=== PATIENT | female | born 1980 | race Caucasian/White ===

== ENCOUNTER 2018-07-10 07:58 | Outpatient (CLI) | payer BC, SELFPAY ==
--- NOTE | 2018-07-10 12:16 | DI.MAMMO_ITS ---
SYMPTOM/DIAGNOSIS: SCREENING, Z12.31, FAM HX BREAST CA, Z80.3, Z87.898, PERSONAL HX OF OTHER SPECIFIED CONDITIONS, HX LUMP LT BREAST MAMMOGRAMS: Mammograms were interpreted according to the usual protocol including computer analysis with CAD system, tomosynthesis and C view imaging. Comparison examinations. Breast density D. No suspicious masses or microcalcifications are seen. There is no definite evidence of malignancy. IMPRESSION: Negative mammogram. Routine screening is recommended. Category I. MQSA ASSESSMENT OF FINDINGS: Negative. Category 1. Patient will receive a letter notifying them of these results. BI-RADS category D. The breasts are extremely dense, which lowers the sensitivity of mammography.
== END 2018-07-10 08:18 ==
PROVIDERS: PCP Nurse Practitioner; Visit Provider Nurse Practitioner
DX: Z12.31 Encounter for screening mammogram for malignant neoplasm of breast (principal); Z80.3 Family history of malignant neoplasm of breast; Z87.898 Personal history of other specified conditions
CPT/HCPCS: 77063; 77067

== ENCOUNTER 2018-07-13 16:07 | Outpatient (REF) | payer BC, SELFPAY ==
--- NOTE | 2018-07-13 14:00 | PAPFT_PTH ---
PATIENT: Naty Raymond LOC: [facility] U#:[id number] AGE/SX: 38/F ROOM: RE07/13/[address]: AUTUMN Luis : 1980 BED: DIS: 07/13/2018 SPEC #: [id number] RECD: 07/13/18 17:39 STATUS: VENICE RESue #: [id number] REENA: 07/13/18 14:[address]: Cynthia Zavala DEPT: [facility] Cytology RECD BY: Sara Freire ENTERED: 07/13/18 17:39 SP TYPE: PAPFT CLAUDIA DR: Merlyn Pena APRN Tissues: 1 - CX/ENDOCX FOR PAP SMEARS Procedures: PAP THIN PREP/UVM Screening HPV DNA PROBE Comments: [id number]
== END 2018-07-13 16:27 ==
LOC: LBN 16:07
PROVIDERS: PCP Nurse Practitioner; Visit Provider Nurse Practitioner Family
DX: Z12.4 Encounter for screening for malignant neoplasm of cervix (principal); Z11.51 Encounter for screening for human papillomavirus (HPV)
CPT/HCPCS: 88142; 87624

== ENCOUNTER 2018-09-18 11:29 | Outpatient (CLI) | payer BC, SELFPAY ==
[2018-09-18 11:51] LABS: HCT 39.4 % (36.0-46.0); HGB 13.9 g/dL (12.0-15.5); Mean Corp. HGB Concentration 35.3 g/dL (32.0-36.0); Mean Corpuscular Hemoglobin 31.2 pg (27.0-33.0); Mean Corpuscular Volume 88.5 fL (80-95); Mean Platelet Volume 10.1 fL (8.0-11.0); Platelet Count 205 x1000/uL (130-400); RBC 4.45 m/cumm (4.00-5.20); RBC Distribution Width 13.4 % (11.7-14.6); White Blood Cell Count 4.72 k/cumm (4.4-10.8)
[2018-09-18 12:27] LABS: ESR 8 MM/HR (0-20)
[2018-09-18 12:51] LABS: ALT 15 U/L (12-78); AST 12 U/L (15-37); Albumin 4.2 g/dL (3.4-5.0); Alkaline Phosphatase 50 U/L (46-116); Anion Gap 11.3 mmol/L (3-11); BUN 10 mg/dL (7-18); Bilirubin, Total 0.3 mg/dL (0.2-1.0); CO2 24.7 mmol/L (21.0-32.0); CREATININE 0.92 mg/dL (0.55-1.02); Calcium 9.1 mg/dL (8.5-10.1); Chloride 104 mmol/L (98-107); Glucose 90 mg/dL (70-100); Potassium 3.7 mmol/L (3.5-5.1); Sodium 140 mmol/L (136-145); Total Protein 7.2 g/dL (6.4-8.2)
[2018-09-20 13:12] LABS: IgA 188 mg/dL (85-499); Interpretation SEE COMMENTS; Tissue Transglutaminase IgA <1.2 U/mL (<4.0)
== END 2018-09-18 11:49 ==
PROVIDERS: PCP Nurse Practitioner; Visit Provider Nurse Practitioner
DX: R10.9 Unspecified abdominal pain (principal); R19.7 Diarrhea, unspecified; R53.81 Other malaise; K90.41 Non-celiac gluten sensitivity
CPT/HCPCS: 36415; 80053; 82784; 83516; 85027; 85652

== ENCOUNTER 2018-10-07 17:38 | Emergency (ER) | payer BC, SELFPAY ==
[2018-10-07 17:46] VITALS: BP 110/76; PULSE 65; RESP 16; TEMP 37.7; O2SAT 100
[2018-10-07 18:11] LABS: Bilirubin Negative (Negative); Blood Negative (Negative); Clarity Clear; Glucose Negative (Negative); Ketones Negative (Negative); Leukocyte Esterase Small (Negative); Nitrite Negative (Negative); Specific Gravity 1.025 (1.005-1.025); Urobilinogen 0.2 EU/dL (Up TO 0.2)
[2018-10-07 18:20] LABS: Bacteria Few HPF (Negative); C & S Indicated? No/Sq. Contamination; Casts Negative LPF (Negative); Crystals Negative HPF (Negative); Epithelial Cells Many HPF (Negative); Mucus Negative (Negative); RBC Negative (0-2)
--- NOTE | 2018-10-07 18:23 | DI.CT_ITS ---
SYMPTOMS/DIAGNOSIS: LEFT LOWER QUADRANT ABDOMINAL PAIN CT OF THE ABDOMEN AND PELVIS: Images were performed from the lung bases through the ischial tuberosities after IV and without oral contrast. There is some fluid in the lower pelvis. The requisition indicates previous hysterectomy. There is an apparent lower uterine segment remnant. The bladder is unremarkable. There are tiny bilateral ovarians cysts. There is a moderate quantity of stool. No bowel dilatation or inflammatory changes are seen. The lung bases are clear. The liver, gallbladder, spleen, pancreas, adrenals and kidneys are unremarkable. No bony abnormalities are seen. IMPRESSION: A small amount of free fluid in the lower pelvis could represent a ruptured ovarian cyst or could be physiologic. The appendix is not identified.
--- NOTE | 2018-10-07 18:25 | W.ED.GENAD ---
Discharge Plan Disposition Patient Disposition: HOME Condition: Stable Discharge Details Chief Complaint: Abd Prob Clinical Impression: Ovarian cyst Primary Care Provider: Merlyn Pena ED Provider: Morro Saha Home Meds and New Rx's Prescriptions: Continued amitriptyline 10 mg tablet 10 mg PO HS Qty: 90 RF: 3 Aimovig Autoinjector (2 Pack) 70 mg/mL auto-injector 140 mg SC QMONTH RF: 0 topiramate 50 mg tablet 50 mg PO DAILY RF: 0 prochlorperazine [Compazine] 25 MG suppository 25 mg RC Q12H PRN PRNRF: 0 hydroxyzine HCl 25 MG tablet 25 mg PO BID PRNRF: 0 ondansetron 4 MG tablet,disintegrating 4 mg PO Q8H PRN RF: 0 naproxen sodium 550 MG tablet 550 mg PO Q12H Qty: 0 RF: 0 Discharge Instructions Instructions: Ovarian Cyst (ED) Additional Instructions: It is recommended that you continue to take ibuprofen or [id number] pain medication as needed for discomfort. Return immediately to the emergency department for any new or significant worsening of symptoms or for any further concerns. Otherwise call [facility] for arrangement of follow-up appointment for ovarian cyst Referrals: [facility] [Provider Group] (Call the office for arrangement of follow-up appointment preferably in the next 1 to 2 weeks) Discharge Data Discharge Date/Time-TO BE ENTERED AT DEPARTURE: 10/07/18 20:47 Medical Decision Making Patient presenting the emergency department for chief complaint of abdominal pain. Patient does state that she saw her primary care provider approximately month ago for similar episode that lasted proximally 5 days and started to resolve. Patient reports that her abdominal pain feels similar and is on the left side of her abdomen. She does state some nausea and mild discomfort and left-sided abdominal pain along with reduced appetite patient does state bowel movement this morning. Patient denies any fever chills, vomiting, recent travel or other family members or close princes with similar symptoms. Physical exam shows left sided abdominal tenderness, normal active bowel sounds, no flank pain, otherwise unremarkable exam. Plan to check labs, CT imaging, and give IV fluids. Patient was offered pain medication but she deferred any need of pain medication at this time. Review of labs is nondiagnostic and CT imaging shows nonspecific pelvic fluid suggestive of ruptured ovarian cyst. Patient does state history of ovarian cyst in the past. Given otherwise nonspecific findings of work-up I feel the patient is able to be safely discharged to follow-up with [facility] for reevaluation of therapies for ovarian cyst. Return precautions were discussed. Patient was encouraged to use ibuprofen or NSAID therapy for discomfort. After discussion of diagnosis and plan of care patient has no further needs, questions, or concerns and states clear understanding to return to the emergency department for any worsening symptoms. HPI General Mode of arrival: ambulatory. Date/Time Provider Initiated Documentation: 10/07/18 17:39. Limitations to Documentation: no limitations. Information obtained by: patient and RN notes reviewed. History of Present Illness 38 year old F presents to the emergency department with the chief complaint of Abdominal pain, described as moderate, with intensity rated at 3. Quality is described as aching, Patient started experiencing this hour(s) (14) and it has been constant. No relieving factors improve symptom(s), Patient did receive the following treatments prior to arrival, none Related Data Home Medications Medication Instructions Recorded Confirmed naproxen sodium 550 mg PO Q12H #0 02/26/16 10/07/18 hydroxyzine HCl 25 mg PO BID PRN 08/02/16 10/07/18 ondansetron 4 mg PO Q8H PRN tab-cap 08/02/16 10/07/18 prochlorperazine [Compazine] 25 mg RC Q12H PRN PRN supp.rect 08/02/16 10/07/18 amitriptyline 10 mg tablet 10 mg PO HS #90 tab 07/03/18 09/18/18 erenumab-aooe 70 mg/mL 140 mg SC QMONTH 08/16/18 10/07/18 subcutaneous auto-injector topiramate 50 mg tablet 50 mg PO DAILY tab 09/18/18 10/07/18 Previous Rx's Medication Instructions Recorded naproxen sodium 550 mg PO Q12H #0 02/26/16 amitriptyline 10 mg tablet 10 mg PO HS #90 tab 07/03/18 Allergies Allergy/AdvReac Type Severity Reaction Status Date / Time ketorolac [From Toradol] AdvReac Severe Agitation Verified 10/07/18 17:51 doxycycline AdvReac Intermediate Nausea Verified 10/07/18 17:51 General Stated Complaint: Abd Prob TORY: 3 Review of Systems Constitutional Reports chills, Denies fever(s) and Reports poor appetite Cardiovascular Denies chest pain and Denies dyspnea Respiratory Denies cough and Denies dyspnea Gastrointestinal Reports as per HPI, Reports abdominal pain, Denies melena, Denies change in bowel habits, Denies constipation, Denies diarrhea, Denies nausea and Denies vomiting Genitourinary Denies hematuria, Denies urinary incontinence, Denies urinary hesitancy and Denies urinary urgency Integumentary/Breasts Denies rash PFSH Medical History Fibrocystic breast changes (Acute) Migraine (Acute 11/04/11) Surgical History S/P laparoscopic supracervical hysterectomy (Chronic) Hysterectomy, Laproscopic (02/26/16) SALPINGECTOMY B/L (02/26/16) Family History Mother Diabetes Essential hypertension Depression Hyperlipidemia Thyroid disease Father Alcohol abuse Essential hypertension Hyperlipidemia Sister Essential hypertension Hyperlipidemia Grandfather Myocardial infarction Grandfather Personal history of malignant neoplasm Grandmother Personal history of malignant neoplasm Grandmother Diabetes Social History Smoking/Tobacco Use Status: Former Tobacco Use Tobacco: How many years used: 3 Alcohol Intake: never Drug use: Never Substance use type: does not use Household members: family Housing: house Number of Children: 2 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 Pets and animals: Yes (cats,dogs and geese) Pets and animals: cat(s), dog(s) and farm animals Sexually active: Yes ( control: vastectomy and hysterectomy) What is your relationship status?: Panel score (0-1 are the most socially isolated patients): 1 What type of physical activity do you participate in: regular exercise Seatbelt use: always Helmet use: Yes Drive intox or ride w/intox boom truck driver: No Do you feel safe at home: Yes Do you feel safe in your relationship?: Yes Female Reproductive History Menstrual Menopause type: surgical History History 2 Para 2 Hx # Term Pregnancies Multiple births Hx # Pregnancies Ectopic pregnancies AB induced Hx Number of Living Children AB spontaneous Exam Const General: cooperative Orientation: alert, awake and oriented x3 Resp Effort & Inspection: normal respiratory effort and able to speak in complete sentences Auscultation: clear to auscultation bilaterally Cardio Rate: regular rate Rhythm: regular rhythm Heart Sounds: S1 normal and S2 normal GI Palpation: soft, no hepatosplenomegaly, not firm, no guarding, no masses, no pulsatile masses, not rigid, no splenomegaly and tender in the LUQ; not at McBurney's point, Castaneda's sign negative and Rovsing's sign negative Auscultation: hypoactive bowel sounds Back/Spine/Pelvis Back: no CVA tenderness Neuro General: alert, awake, oriented x3, gait normal and moves all extremities Course Vital Signs Temperature 37.7 C H 10/07/18 17:46 Pulse 65 10/07/18 17:46 Respiratory Rate 16 10/07/18 17:46 Blood Pressure 110/76 10/07/18 17:46 Pulse Oximetry 100 10/07/18 17:46 Temperature 37.7 C H 10/07/18 17:46 Pulse 65 10/07/18 17:46 Respiratory Rate 16 10/07/18 17:46 Respiratory Effort Non-Labored 10/07/18 18:21 Blood Pressure 110/76 10/07/18 17:46 Blood Pressure Position Sitting 10/07/18 17:46 Pulse Oximetry 100 10/07/18 17:46 Oxygen Delivery Method Room Air 10/07/18 17:46 Oxygen Flow Rate 0 10/07/18 17:46 Pain Level 3 10/07/18 17:46 Lab/Test Results Lab/Test Results: Laboratory Tests Range/Units 10/07/18 10/07/18 10/07/18 18:00 18:50 18:50 WBC (4.4-10.8) k/cumm 5.50 RBC (4.00-5.20) m/cumm 4.40 Hgb (12.0-15.5) g/dL 13.7 Hct (36.0-46.0) % 39.3 MCV (80-95) fL 89.3 MCH (27.0-33.0) pg 31.1 MCHC (32.0-36.0) g/dL 34.9 RDW (11.7-14.6) % 13.3 Plt Count (130-400) x1000/uL 225 MPV (8.0-11.0) fL 10.1 Immature Gran % 0.2 Neutrophils % 58.5 Lymphocytes % 33.1 Monocytes % 6.7 Eosinophils % 1.3 Basophils % 0.2 Absolute Neutrophils (1.2-6.7) k/cumm 3.22 Absolute Lymphocytes (1.2-3.4) k/cumm 1.82 Absolute Monocytes (0.11-0.7) k/cumm 0.37 Absolute Eosinophils (0.0-0.7) k/cumm 0.07 Absolute Basophils (0.0-0.2) k/cumm 0.01 Sodium (136-145) mmol/L 140 Potassium (3.5-5.1) mmol/L 3.3 L Chloride (98-107) mmol/L 104 Carbon Dioxide (21.0-32.0) mmol/L 24.1 Anion Gap (3-11) mmol/L 11.9 H BUN (7-18) mg/dL 10 Creatinine (0.55-1.02) mg/dL 0.92 Estimated GFR/1.73 m2 (mL/min/1.73m2) >= 60.00 Glucose (70-100) mg/dL 81 Calcium (8.5-10.1) mg/dL 8.6 Total Bilirubin (0.2-1.0) mg/dL 0.4 AST (15-37) U/L 13 L ALT (12-78) U/L 13 Alkaline Phosphatase (46-116) U/L 54 Total Protein (6.4-8.2) g/dL 7.3 Albumin (3.4-5.0) g/dL 4.2 Lipase (73-393) U/L 152 Urine Color (Yellow) Yellow Urine Clarity Clear Urine pH (5-8) 6.0 Ur Specific [place] (1.005-1.025) 1.025 Urine Protein (Negative) mg/dL Negative Urine Ketones (Negative) mg/dL Negative Urine Blood (Negative) Negative Urine Nitrite (Negative) Negative Urine Bilirubin (Negative) Negative Urine Urobilinogen (Up TO 0.2) EU/dL 0.2 Ur Leukocyte Esterase (Negative) Small H Urine RBC (0-2) Negative Urine WBC (0-5) HPF 3-5 Ur Epithelial Cells (Negative) HPF Many Urine Crystals (Negative) HPF Negative Urine Bacteria (Negative) HPF Few Urine Casts (Negative) LPF Negative Urine Mucus (Negative) Negative Ur Culture Indicated? No/sq. contamination Urine Glucose (Negative) mg/dL Negative
[2018-10-07] MEDS: Normal Saline 1,000 ML 1000 ML IV (18:50)
[2018-10-07 19:06] LABS: Abs Immature Grans 0.01 k/cumm (0.0-0.09); Absolute Basophil Count 0.01 k/cumm (0.0-0.2); Absolute Eosinophil Count 0.07 k/cumm (0.0-0.7); Absolute Lymphocyte Count 1.82 k/cumm (1.2-3.4); Absolute Monocyte Count 0.37 k/cumm (0.11-0.7); Absolute Neutrophil Count 3.22 k/cumm (1.2-6.7); Basophils % 0.2; Eosinophils % 1.3; HCT 39.3 % (36.0-46.0); HGB 13.7 g/dL (12.0-15.5); Immature Grans % 0.2; Lymphocytes % 33.1; Mean Corp. HGB Concentration 34.9 g/dL (32.0-36.0); Mean Corpuscular Hemoglobin 31.1 pg (27.0-33.0); Mean Corpuscular Volume 89.3 fL (80-95); Mean Platelet Volume 10.1 fL (8.0-11.0); Monocytes % 6.7; Neutrophils % 58.5; Platelet Count 225 x1000/uL (130-400); RBC Distribution Width 13.3 % (11.7-14.6)
[2018-10-07] MEDS: Omnipaque 350 MG/ML 100 ML BTL IJ (19:22)
[2018-10-07 19:49] LABS: ALT 13 U/L (12-78); AST 13 U/L (15-37); Albumin 4.2 g/dL (3.4-5.0); Alkaline Phosphatase 54 U/L (46-116); Anion Gap 11.9 mmol/L (3-11); BUN 10 mg/dL (7-18); Bilirubin, Total 0.4 mg/dL (0.2-1.0); CO2 24.1 mmol/L (21.0-32.0); CREATININE 0.92 mg/dL (0.55-1.02); Chloride 104 mmol/L (98-107); Glucose 81 mg/dL (70-100); Lipase 152 U/L (73-393); Potassium 3.3 mmol/L (3.5-5.1); Sodium 140 mmol/L (136-145); Total Protein 7.3 g/dL (6.4-8.2)
--- NOTE | 2018-10-07 19:50 | DI.VRAD_ITS ---
EXAM: CT Abdomen and Pelvis With Contrast EXAM DATE/TIME: 10/07/2018 6:25 PM CLINICAL HISTORY: 38 years old, female; Signs and symptoms; Other: Llq abd pain; Prior surgery; Surgery date: 6+ months; Surgery type: Hysterectomy TECHNIQUE: Imaging protocol: Axial computed tomography images of the abdomen and pelvis with intravenous contrast. Coronal and sagittal reformatted images were created and reviewed. Radiation optimization: All CT scans at this facility use at least one of these dose optimization techniques: automated exposure control; mA and/or kV adjustment per patient size (includes targeted exams where dose is matched to clinical indication); or iterative reconstruction. COMPARISON: US PELVIS TRANSVAG 01/07/2016 4:31 PM FINDINGS: Probable 4.3 cm uterine fibroid in the lower uterine segment. Small amount of free fluid in the pelvis. This appears slightly more than one would expect for physiologic fluid and there are small ovarian cysts present bilaterally. This may representing recent ovarian cyst rupture. Normal appearing solid organs. No intestinal obstruction. No obstructive uropathy. No free air. No inflammatory changes. IMPRESSION: 1. Probable recent ovarian cyst rupture. 2. No other specific etiology identified for the patient's symptoms. Dictated and Authenticated by: Bryan Snyder MD. Ordering:HARISH Hooker MD
[2018-10-07 19:55] LABS: Calcium 8.6 mg/dL (8.5-10.1)
[2018-10-07 20:38] VITALS: BP 115/70; PULSE 62; RESP 16; TEMP 37.7; O2SAT 100
== END 2018-10-07 20:47 | disposition home or self-care (01) ==
PROVIDERS: Emergency Provider Nurse Practitioner Family; PCP Nurse Practitioner
DX: N83.202 Unspecified ovarian cyst, left side (principal); R11.0 Nausea
CPT/HCPCS: 36415; 80053; 83690; 96360; 96361; 99285; 74177; 81003; 81015; 85025; 99284; J3490

== ENCOUNTER 2019-03-06 13:44 | Outpatient (CLI) | payer BC, SELFPAY ==
[2019-03-06 15:05] LABS: C-Reactive Protein 0.06 mg/dL (0.0-0.3); TSH (W/Ref FT4) 1.97 uIU/mL (0.36-3.74)
[2019-03-06 15:11] LABS: ESR 9 mm/hr (0-20)
[2019-03-07 11:39] LABS: Rheumatoid Factor <8 IU/mL (<12.5)
[2019-03-07 11:55] LABS: ANA Interpretation Negative (NEGAT)
== END 2019-03-06 14:04 ==
PROVIDERS: PCP Nurse Practitioner; Visit Provider Nurse Practitioner
DX: M25.50 Pain in unspecified joint (principal); R21 Rash and other nonspecific skin eruption; R53.83 Other fatigue; L65.9 Nonscarring hair loss, unspecified
CPT/HCPCS: 36415; 85652; 84443; 86038; 86140; 86431

== ENCOUNTER 2020-01-15 12:33 | Emergency (ER) | payer BC, SELFPAY ==
[2020-01-15 12:43] VITALS: BP 104/62; PULSE 65; RESP 18; TEMP 36.4; O2SAT 100
[2020-01-15 13:15] LABS: Bilirubin Negative (Negative); Blood Negative (Negative); Clarity Clear (Clear); Glucose Negative (Negative); Ketones Trace mg/dL (Negative); Leukocyte Esterase Trace (Negative); Nitrite Negative (Negative); Specific Gravity >= 1.030 (1.005-1.025); Urobilinogen 0.2 EU/dL (Up TO 0.2)
[2020-01-15 13:23] LABS: Abs Immature Grans 0.02 10^3/uL (0.0-0.06); Absolute Basophil Count 0.01 10^3/uL (0.0-0.2); Absolute Eosinophil Count 0.03 10^3/uL (0.0-0.7); Absolute Lymphocyte Count 0.79 10^3/uL (1.2-3.4); Absolute Monocyte Count 0.29 10^3/uL (0.1-0.8); Basophils % 0.2; Eosinophils % 0.5; HCT 41.7 % (36.0-46.0); HGB 14.1 g/dL (11.2-15.7); Immature Grans % 0.3; Lymphocytes % 12.5; MCH 30.9 pg (27.0-33.0); MCHC 33.8 % (32.0-36.0); MCV 91.4 fL (80-95); MPV 10.2 fL (8.0-11.0); Monocytes % 4.6; Neutrophils % 81.9 %; Platelet Count 215 10^3/uL (130-400); RBC 4.56 10^6/uL (3.93-5.22); RDW 12.7 % (11.7-14.6); RDW-SD 42.5 fL; WBC 6.34 10^3/uL (4.4-10.8)
[2020-01-15 13:24] LABS: Bacteria Rare HPF (Negative); C & S Indicated? No; Casts Negative LPF (Negative); Crystals Negative HPF (Negative); Epithelial Cells Moderate HPF (Negative); Mucus Trace (Negative); RBC Negative HPF (0-2); WBC 0-2 HPF (0-5)
--- NOTE | 2020-01-15 13:30 | DI.US_ITS ---
EXAM: US ABDOMEN CLINICAL HISTORY: Right upper quadrant pain TECHNIQUE: Ultrasound abdomen performed using standard protocol. COMPARISON: No exams were available for comparison FINDINGS: LIVER: Normal size and echogenicity. No focal liver lesions are seen.. GALLBLADDER: No evidence of cholelithiasis. No evidence of wall thickening. No pericholecystic fluid identified. There is a tiny echogenic focus which appears adherent to the gallbladder wall which cou ld represent a cholesterol polyp or focal adenomyomatosis. CANTU'S SIGN: Negative. BILIARY SYSTEM: No intrahepatic or extrahepatic biliary ductal dilation. KIDNEYS: Kidneys are symmetric in size. No evidence of renal calculi. No evidence of hydronephrosis. No renal mass or cyst identified. PANCREAS: Normal where visualized. SPLEEN: Not enlarged. ABDOMINAL AORTA AND IVC: Visualized portions normal caliber. ASCITES: None seen. IMPRESSION: Question of a small cholesterol polyp. No findings to suggest acute cholecystitis. DATA REPOSITORY:
[2020-01-15 13:37] LABS: Lipase 148 U/L (73-393)
[2020-01-15 13:55] LABS: ALT 16 U/L (14-59); AST 14 U/L (15-37); Albumin 4.2 g/dL (3.4-5.0); Alkaline Phosphatase 47 U/L (46-116); Anion Gap 10.3 mmol/L (3-11); BUN 18 mg/dL (7-18); Bilirubin, Total 0.3 mg/dL (0.2-1.0); CO2 25.7 mmol/L (21.0-32.0); CREATININE 0.91 mg/dL (0.55-1.02); Calcium 8.8 mg/dL (8.5-10.1); Chloride 103 mmol/L (98-107); Glucose 98 mg/dL (74-106); Potassium 3.5 mmol/L (3.5-5.1); Sodium 139 mmol/L (136-145); Total Protein 7.8 g/dL (6.4-8.2)
--- NOTE | 2020-01-15 14:57 | W.ED.GENAD ---
Discharge Plan Disposition Patient Disposition: HOME Condition: Stable Discharge Details Chief Complaint: Abd Prob Clinical Impression: Abdominal pain Primary Care Provider: Merlyn Pena ED Provider: Rafael Maza Home Meds and New Rx's Prescriptions: Continued Aimovig Autoinjector (2 Pack) 70 mg/mL auto-injector 140 mg SC QMONTH RF: 0 prochlorperazine [Compazine] 25 MG suppository 25 mg RC Q12H PRN PRNRF: 0 hydroxyzine HCl 25 MG tablet 25 mg PO BID PRNRF: 0 ondansetron 4 MG tablet,disintegrating 4 mg PO Q8H PRN RF: 0 Qbrexza 2.4 % towelette 1 applic TP DAILY RF: 0 naproxen sodium 550 MG tablet 550 mg PO Q12H PRNRF: 0 Discharge Instructions Instructions: Abdominal Pain (ED) Additional Instructions: At this time your laboratory values and ultrasound do not reveal any obvious emergent process. Please watch for new or worsening symptoms and return to the ER for any concerns. Iwhq-[id number] medication such as Pepto-Bismol for symptomatic control. I do recommend reaching out your primary care provider today or tomorrow for prompt outpatient reevaluation. Discharge Data Discharge Date/Time-TO BE ENTERED AT DEPARTURE: 01/15/20 15:19 Medical Decision Making 39-year-old female presenting for abdominal pain that began around 830 this morning. She appears well, nontoxic and her abdominal examination is certainly nonsurgical. Current pulse of 65, blood pressure 104/62, afebrile. Differential includes but not excluded to gastritis, pancreatitis, peptic ulcer disease, biliary colic, H. pylori, gastroenteritis, appendicitis, etc. Will obtain IV access, obtain CBC, CMP, lipase, urinalysis. Offered analgesia but she declines. Laboratory values reveal a white blood cell count of 6.34 hemoglobin 14.1 hematocrit 41.7 platelet count 215. Electrolytes unremarkable. Creatinine of 0.91 with a GFR of greater than 60. Total bilirubin of 0.3. AST 14 ALT 16 alk phosphatase 47 urinalysis yellow, trace protein, trace ketones. No obvious infection. Will obtain ultrasound of her abdomen for further evaluation. Question of a small cholesterol polyp. No findings to suggest acute cholecystitis per radiology. Laboratory values and ultrasound with patient. She is relieved. We discussed analgesia but she declines, would rather take ruco-mdc-thdbqsh medications. At this time abdomen is soft, only minimally diffusely tender without any signs of rebound, rigidity, guarding. Nonsurgical at this moment, she appears well, nontoxic, no acute distress. Symptoms will be going on for short period of time. We discussed the importance of watching for new or evolving symptoms and return immediately to the ER. She will use uksv-avb-jjeirsb medications for symptomatic control, have a bland diet, advancing as tolerated, and reach out to her primary care provider later today or tomorrow for prompt outpatient reevaluation. She is comfortable this plan and has no additional questions or concerns Medical Records Medical records reviewed: Yes I reviewed the patient's medical records. Lab Data Lab results reviewed: Yes I reviewed the patient's lab results. Lab results narrative: Laboratory Tests Range/Units 01/15/20 01/15/20 01/15/20 13:10 13:15 13:15 WBC (4.4-10.8) 10^3/uL 6.34 RBC (3.93-5.22) 10^6/uL 4.56 Hgb (11.2-15.7) g/dL 14.1 Hct (36.0-46.0) % 41.7 MCV (80-95) fL 91.4 MCH (27.0-33.0) pg 30.9 MCHC (32.0-36.0) % 33.8 RDW (11.7-14.6) % 12.7 Plt Count (130-400) 10^3/uL 215 MPV (8.0-11.0) fL 10.2 Immature Gran % 0.3 Neutrophils % % 81.9 Lymphocytes % 12.5 Monocytes % 4.6 Eosinophils % 0.5 Basophils % 0.2 Absolute Neutrophils (1.2-6.7) 10^3/uL 5.20 Absolute Lymphocytes (1.2-3.4) 10^3/uL 0.79 L Absolute Monocytes (0.1-0.8) 10^3/uL 0.29 Absolute Eosinophils (0.0-0.7) 10^3/uL 0.03 Absolute Basophils (0.0-0.2) 10^3/uL 0.01 Sodium (136-145) mmol/L Potassium (3.5-5.1) mmol/L Chloride (98-107) mmol/L Carbon Dioxide (21.0-32.0) mmol/L Anion Gap (3-11) mmol/L BUN (7-18) mg/dL Creatinine (0.55-1.02) mg/dL Estimated GFR/1.73 m2 (mL/min/1.73m2) Glucose (74-106) mg/dL Calcium (8.5-10.1) mg/dL Total Bilirubin (0.2-1.0) mg/dL AST (15-37) U/L ALT (14-59) U/L Alkaline Phosphatase (46-116) U/L Total Protein (6.4-8.2) g/dL Albumin (3.4-5.0) g/dL Lipase (73-393) U/L 148 Urine Color (Yellow) Yellow Urine Clarity (Clear) Clear Urine pH (5-8) 6.0 Ur Specific [place] (1.005-1.025) >= 1.030 H Urine Protein (Negative) mg/dL Trace H Urine Ketones (Negative) mg/dL Trace H Urine Blood (Negative) Negative Urine Nitrite (Negative) Negative Urine Bilirubin (Negative) Negative Urine Urobilinogen (Up TO 0.2) EU/dL 0.2 Ur Leukocyte Esterase (Negative) Trace H Urine RBC (0-2) HPF Negative Urine WBC (0-5) HPF 0-2 Ur Epithelial Cells (Negative) HPF Moderate Urine Crystals (Negative) HPF Negative Urine Bacteria (Negative) HPF Rare Urine Casts (Negative) LPF Negative Urine Mucus (Negative) Trace Ur Culture Indicated? No Urine Glucose (Negative) mg/dL Negative Range/Units 01/15/20 13:15 WBC (4.4-10.8) 10^3/uL RBC (3.93-5.22) 10^6/uL Hgb (11.2-15.7) g/dL Hct (36.0-46.0) % MCV (80-95) fL MCH (27.0-33.0) pg MCHC (32.0-36.0) % RDW (11.7-14.6) % Plt Count (130-400) 10^3/uL MPV (8.0-11.0) fL Immature Gran % Neutrophils % % Lymphocytes % Monocytes % Eosinophils % Basophils % Absolute Neutrophils (1.2-6.7) 10^3/uL Absolute Lymphocytes (1.2-3.4) 10^3/uL Absolute Monocytes (0.1-0.8) 10^3/uL Absolute Eosinophils (0.0-0.7) 10^3/uL Absolute Basophils (0.0-0.2) 10^3/uL Sodium (136-145) mmol/L 139 Potassium (3.5-5.1) mmol/L 3.5 Chloride (98-107) mmol/L 103 Carbon Dioxide (21.0-32.0) mmol/L 25.7 Anion Gap (3-11) mmol/L 10.3 BUN (7-18) mg/dL 18 Creatinine (0.55-1.02) mg/dL 0.91 Estimated GFR/1.73 m2 (mL/min/1.73m2) >= 60.00 Glucose (74-106) mg/dL 98 Calcium (8.5-10.1) mg/dL 8.8 Total Bilirubin (0.2-1.0) mg/dL 0.3 AST (15-37) U/L 14 L ALT (14-59) U/L 16 Alkaline Phosphatase (46-116) U/L 47 Total Protein (6.4-8.2) g/dL 7.8 Albumin (3.4-5.0) g/dL 4.2 Lipase (73-393) U/L Urine Color (Yellow) Urine Clarity (Clear) Urine pH (5-8) Ur Specific [place] (1.005-1.025) Urine Protein (Negative) mg/dL Urine Ketones (Negative) mg/dL Urine Blood (Negative) Urine Nitrite (Negative) Urine Bilirubin (Negative) Urine Urobilinogen (Up TO 0.2) EU/dL Ur Leukocyte Esterase (Negative) Urine RBC (0-2) HPF Urine WBC (0-5) HPF Ur Epithelial Cells (Negative) HPF Urine Crystals (Negative) HPF Urine Bacteria (Negative) HPF Urine Casts (Negative) LPF Urine Mucus (Negative) Ur Culture Indicated? Urine Glucose (Negative) mg/dL HPI General Mode of arrival: ambulatory. Date/Time Provider Initiated Documentation: 01/15/20 12:46. Limitations to Documentation: no limitations. Information obtained by: patient. HPI Narrative: This is a 39-year-old female with history of migraines, anxiety, smoker, gastritis, fibromyalgia, status post hysterectomy, presenting with abdominal pain that began around 830 this morning. She reports that she ate a bowl of Cheerios around 5 AM and was asymptomatic. Around 830 she felt cramping and sharp pain near her epigastric region which subsequently radiated to her right upper quadrant and then diffusely across her entire abdomen. She was at work, it was hot, she was wearing a mask, and she became nauseous and vomited x1. She reports that she is not sure if she was nauseous because of the heat or if it was secondary to the pain. She denies any nausea at this time. She was told many years ago that she had a spastic gallbladder. She denies recent travel, bad food exposure, sick contacts. Denies fever, chest pain, shortness of breath, back pain, dysuria, hematuria, diarrhea or constipation. No vaginal bleeding or discharge. Pain is more sharp when it began however now it is more diffusely crampy and not as severe. Related Data Home Medications Medication Instructions Recorded Confirmed hydroxyzine HCl 25 mg PO BID PRN 08/02/16 01/15/20 ondansetron 4 mg PO Q8H PRN tab-cap 08/02/16 01/15/20 prochlorperazine [Compazine] 25 mg RC Q12H PRN PRN supp.rect 08/02/16 01/15/20 erenumab-aooe 70 mg/mL 140 mg SC QMONTH 08/16/18 01/15/20 subcutaneous auto-injector glycopyrronium tosylate 2.4 % 1 applic TP DAILY 08/01/19 01/15/20 towelette naproxen sodium 550 mg PO Q12H PRN 01/15/20 01/15/20 Allergies Allergy/AdvReac Type Severity Reaction Status Date / Time ketorolac [From Toradol] AdvReac Severe Agitation Verified 01/15/20 12:46 doxycycline AdvReac Intermediate Nausea Verified 01/15/20 12:46 General Stated Complaint: Abd Prob TORY: 3 Review of Systems Constitutional Constitutional: Denies fever(s) and Denies weakness ENT Ears, Nose, Mouth, and Throat: Denies neck pain and Denies sore throat Cardiovascular Cardiovascular: Denies chest pain and Denies dyspnea Respiratory Respiratory: Denies cough and Denies dyspnea Gastrointestinal Gastrointestinal: Reports abdominal pain, Denies constipation, Denies diarrhea, Reports nausea and Reports vomiting Genitourinary Genitourinary: Denies dysuria Musculoskeletal Musculoskeletal: Denies back pain, Denies neck pain, Denies numbness and Denies tingling Integumentary/Breasts Skin/Breast: Denies rash Neurologic Neurologic: Denies numbness, Denies tingling and Denies weakness PFSH Medical History Fibrocystic breast changes (Acute) Migraine (Acute 11/04/11) Small fiber neuropathy (Acute) Surgical History Hysterectomy, Laproscopic (02/26/16) S/P laparoscopic supracervical hysterectomy (Chronic) prophylactic bilateral distal salpingectomy SALPINGECTOMY B/L (02/26/16) Family History Mother Diabetes Essential hypertension Depression Hyperlipidemia Thyroid disease Father Alcohol abuse Essential hypertension Hyperlipidemia Sister Essential hypertension Hyperlipidemia Grandfather Myocardial infarction Grandfather Personal history of malignant neoplasm BLADDER/LUNG Grandmother Personal history of malignant neoplasm COLON Grandmother Diabetes Social History Smoking/Tobacco Use Status: Former Tobacco Use Tobacco: How many years used: 3 Alcohol Intake: never Drug use: Never Substance use type: does not use Household members: family Housing: house Number of Children: 2 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 Pets and animals: Yes (cats,dogs and geese) Pets and animals: cat(s), dog(s) and farm animals Sexually active: Yes ( control: vastectomy and hysterectomy) What is your relationship status?: Panel score (0-1 are the most socially isolated patients): 1 What type of physical activity do you participate in: regular exercise Seatbelt use: always Helmet use: Yes Drive intox or ride w/intox six horse hitch driver: No Do you feel safe at home: Yes Do you feel safe in your relationship?: Yes Female Reproductive History Menstrual Menopause type: surgical History History 2 Para 2 Hx # Term Pregnancies Multiple births Hx # Pregnancies Ectopic pregnancies AB induced Hx Number of Living Children AB spontaneous Exam Const General: cooperative, healthy appearing, comfortable and no acute distress Orientation: alert, awake and oriented x3 HENMT Head: normal to inspection, normocephalic and atraumatic Mouth: moist mucous membranes Throat: posterior oropharynx normal Eyes Conjunctivae: conjunctivae normal Sclera: sclerae normal Neck Neck: normal visual inspection, full ROM, trachea midline and supple Resp Effort & Inspection: normal respiratory effort and able to speak in complete sentences Auscultation: clear to auscultation bilaterally Cardio Rate: regular rate Rhythm: regular rhythm GI Inspection: normal to inspection Palpation: soft, not firm, no guarding, no pulsatile masses, not rigid and tender (Mild diffusely, slightly worse in the epigastric region) with no rebound tenderness Auscultation: normal bowel sounds Back/Spine/Pelvis Back: No back tenderness Skin General skin exam: no rashes or lesions noted Neuro General: patient alert, patient awake, patient oriented x3, moves all extremities and no focal motor deficits Gait: normal gait Motor: muscle tone normal throughout Sensory Exam: no sensory deficits noted Extrem General: normal to inspection, full ROM and capillary refill normal Psych Appearance: grossly normal Mental Status: mental status grossly normal Course Vital Signs Vital signs: Vital Signs Temperature 36.4 C L 01/15/20 12:43 Pulse 65 01/15/20 12:43 Respiratory Rate 18 01/15/20 12:43 Blood Pressure 104/62 01/15/20 12:43 Pulse Oximetry 100 01/15/20 12:43 Temperature 36.4 C L 01/15/20 12:43 Temperature Source Skin 01/15/20 12:43 Pulse 65 01/15/20 12:43 Respiratory Rate 18 01/15/20 12:43 Respiratory Effort Non-Labored 01/15/20 13:26 Blood Pressure 104/62 01/15/20 12:43 Blood Pressure Position Sitting 01/15/20 12:43 Pulse Oximetry 100 01/15/20 12:43 Oxygen Delivery Method Room Air 01/15/20 12:43 Oxygen Flow Rate 0 01/15/20 12:43 Pain Level 7 01/15/20 12:43 Lab/Test Results Lab/Test Results: Laboratory Tests Range/Units 01/15/20 01/15/20 01/15/20 13:10 13:15 13:15 WBC (4.4-10.8) 10^3/uL 6.34 RBC (3.93-5.22) 10^6/uL 4.56 Hgb (11.2-15.7) g/dL 14.1 Hct (36.0-46.0) % 41.7 MCV (80-95) fL 91.4 MCH (27.0-33.0) pg 30.9 MCHC (32.0-36.0) % 33.8 RDW (11.7-14.6) % 12.7 Plt Count (130-400) 10^3/uL 215 MPV (8.0-11.0) fL 10.2 Immature Gran % 0.3 Neutrophils % % 81.9 Lymphocytes % 12.5 Monocytes % 4.6 Eosinophils % 0.5 Basophils % 0.2 Absolute Neutrophils (1.2-6.7) 10^3/uL 5.20 Absolute Lymphocytes (1.2-3.4) 10^3/uL 0.79 L Absolute Monocytes (0.1-0.8) 10^3/uL 0.29 Absolute Eosinophils (0.0-0.7) 10^3/uL 0.03 Absolute Basophils (0.0-0.2) 10^3/uL 0.01 Sodium (136-145) mmol/L Potassium (3.5-5.1) mmol/L Chloride (98-107) mmol/L Carbon Dioxide (21.0-32.0) mmol/L Anion Gap (3-11) mmol/L BUN (7-18) mg/dL Creatinine (0.55-1.02) mg/dL Estimated GFR/1.73 m2 (mL/min/1.73m2) Glucose (74-106) mg/dL Calcium (8.5-10.1) mg/dL Total Bilirubin (0.2-1.0) mg/dL AST (15-37) U/L ALT (14-59) U/L Alkaline Phosphatase (46-116) U/L Total Protein (6.4-8.2) g/dL Albumin (3.4-5.0) g/dL Lipase (73-393) U/L 148 Urine Color (Yellow) Yellow Urine Clarity (Clear) Clear Urine pH (5-8) 6.0 Ur Specific [place] (1.005-1.025) >= 1.030 H Urine Protein (Negative) mg/dL Trace H Urine Ketones (Negative) mg/dL Trace H Urine Blood (Negative) Negative Urine Nitrite (Negative) Negative Urine Bilirubin (Negative) Negative Urine Urobilinogen (Up TO 0.2) EU/dL 0.2 Ur Leukocyte Esterase (Negative) Trace H Urine RBC (0-2) HPF Negative Urine WBC (0-5) HPF 0-2 Ur Epithelial Cells (Negative) HPF Moderate Urine Crystals (Negative) HPF Negative Urine Bacteria (Negative) HPF Rare Urine Casts (Negative) LPF Negative Urine Mucus (Negative) Trace Ur Culture Indicated? No Urine Glucose (Negative) mg/dL Negative Range/Units 01/15/20 13:15 WBC (4.4-10.8) 10^3/uL RBC (3.93-5.22) 10^6/uL Hgb (11.2-15.7) g/dL Hct (36.0-46.0) % MCV (80-95) fL MCH (27.0-33.0) pg MCHC (32.0-36.0) % RDW (11.7-14.6) % Plt Count (130-400) 10^3/uL MPV (8.0-11.0) fL Immature Gran % Neutrophils % % Lymphocytes % Monocytes % Eosinophils % Basophils % Absolute Neutrophils (1.2-6.7) 10^3/uL Absolute Lymphocytes (1.2-3.4) 10^3/uL Absolute Monocytes (0.1-0.8) 10^3/uL Absolute Eosinophils (0.0-0.7) 10^3/uL Absolute Basophils (0.0-0.2) 10^3/uL Sodium (136-145) mmol/L 139 Potassium (3.5-5.1) mmol/L 3.5 Chloride (98-107) mmol/L 103 Carbon Dioxide (21.0-32.0) mmol/L 25.7 Anion Gap (3-11) mmol/L 10.3 BUN (7-18) mg/dL 18 Creatinine (0.55-1.02) mg/dL 0.91 Estimated GFR/1.73 m2 (mL/min/1.73m2) >= 60.00 Glucose (74-106) mg/dL 98 Calcium (8.5-10.1) mg/dL 8.8 Total Bilirubin (0.2-1.0) mg/dL 0.3 AST (15-37) U/L 14 L ALT (14-59) U/L 16 Alkaline Phosphatase (46-116) U/L 47 Total Protein (6.4-8.2) g/dL 7.8 Albumin (3.4-5.0) g/dL 4.2 Lipase (73-393) U/L Urine Color (Yellow) Urine Clarity (Clear) Urine pH (5-8) Ur Specific [place] (1.005-1.025) Urine Protein (Negative) mg/dL Urine Ketones (Negative) mg/dL Urine Blood (Negative) Urine Nitrite (Negative) Urine Bilirubin (Negative) Urine Urobilinogen (Up TO 0.2) EU/dL Ur Leukocyte Esterase (Negative) Urine RBC (0-2) HPF Urine WBC (0-5) HPF Ur Epithelial Cells (Negative) HPF Urine Crystals (Negative) HPF Urine Bacteria (Negative) HPF Urine Casts (Negative) LPF Urine Mucus (Negative) Ur Culture Indicated? Urine Glucose (Negative) mg/dL
[2020-01-15 15:05] VITALS: BP 101/62; PULSE 69; RESP 20; TEMP 36.7; O2SAT 100
== END 2020-01-15 15:19 | disposition home or self-care (01) ==
PROVIDERS: Emergency Provider Physician Assistant; PCP Nurse Practitioner
DX: R10.13 Epigastric pain (principal); R11.2 Nausea with vomiting, unspecified
CPT/HCPCS: 36415; 80053; 83690; 99285; 76700; 81003; 81015; 85025; 99284

== ENCOUNTER 2020-08-14 03:28 | Outpatient (CLI) | payer BC, SELFPAY ==
[2020-08-14 14:47] LABS: C-Reactive Protein 0.05 mg/dL (0.0-0.3)
[2020-08-14 20:44] LABS: ESR 7 mm/hr (<or=20)
[2020-08-14 21:24] LABS: Rheumatoid Factor <8.6 IU/mL (<12.0)
[2020-08-15 15:57] LABS: ANA Interpretation Negative (Negative)
[2020-08-19 11:15] LABS: dsDNA Ab, IgG <12.3 IU/mL (<30.0)
[2020-08-19 15:08] LABS: RNP Ab, IgG 3.9 Units (<20.0); SS-A Antibody 1.8 Units (<20.0); SS-B (La) Ab, IgG 12.6 Units (<20.0)
== END 2020-08-14 03:29 | disposition home or self-care (01) ==
LOC: LBO 03:28
PROVIDERS: PCP Nurse Practitioner; Visit Provider Nurse Practitioner
DX: R53.83 Other fatigue (principal); M79.7 Fibromyalgia; M25.59 Pain in other specified joint; G60.9 Hereditary and idiopathic neuropathy, unspecified
CPT/HCPCS: 36415; 85652; 86038; 86140; 86225; 86235; 86431

== ENCOUNTER 2020-09-25 13:23 | Emergency (ER) | payer BC, SELFPAY ==
[2020-09-25 13:27] VITALS: BP 127/77; PULSE 80; RESP 14; TEMP 36.6; O2SAT 100
--- NOTE | 2020-09-25 14:02 | DI.US_ITS ---
EXAM: US PELVIS TRANSVAGINAL CLINICAL HISTORY: left pelvic pain, s/p hyst, + ovaries TECHNIQUE: Transabdominal and transvaginal imaging was performed using standard protocol. COMPARISON: US PELVIS TRANSVAG from 01/07/[address] ABDOMEN PELVIS W from 10/07/2018 FINDINGS: KIDNEYS: Kidneys are symmetric in size. No evidence of renal calculi. No evidence of hydronephrosis. No renal mass or cyst identified. UTERUS: Status post hysterectomy with cervical remnant. Nabothian cysts are seen. No gross evidence of a ma ss. . OVARIES: Right: Cyst or mass: None. Normal follicular appearance. Left: Cyst or mass: None. Normal size. Normal follicular appearance. DOPPLER: Color: Symmetric and uniform flow to both ovaries. No hyperemia. Duplex: Normal ovarian arterial waveforms visualized. CUL-DE-SAC: Free fluid: None. IMPRESSION: Status post hysterectomy with cervical remnant without visible abnormality. Unremarkable bilateral ovaries. DATA REPOSITORY:
--- NOTE | 2020-09-25 14:10 | ED.GENADUL_ITS ---
Discharge Plan Disposition Patient Disposition: HOME Condition: Good Discharge Details Clinical Impression: Vaginal bleeding, Pelvic pain, Hypokalemia Primary Care Provider: Merlyn Pena ED Provider: Sara Monzon Home Meds and New Rx's Prescriptions: New potassium chloride 20 mEq tablet,ER particles/crystals 20 meq PO DAILY Qty: 7 RF: 0 Continued Aimovig Autoinjector (2 Pack) 70 mg/mL auto-injector 140 mg SC QMONTH RF: 0 prochlorperazine [Compazine] 25 MG suppository 25 mg RC Q12H PRN PRNRF: 0 hydroxyzine HCl 25 MG tablet 25 mg PO BID PRNRF: 0 ondansetron 4 MG tablet,disintegrating 4 mg PO Q8H PRN RF: 0 Qbrexza 2.4 % towelette 1 applic TP DAILY RF: 0 magnesium oxide 400 mg magnesium capsule 400 mg PO DAILY RF: 0 Nurtec ODT 75 mg tablet,disintegrating 75 mg PO ONCE PRNRF: 0 almotriptan malate 12.5 mg tablet 12.5 mg PO ONCE PRN (Reason: migraine headache) RF: 0 naproxen sodium 550 MG tablet 550 mg PO Q12H PRNRF: 0 Discharge Instructions Instructions: Hypokalemia (ED) Additional Instructions: Ibuprofen and Tylenol for pain control, neck ibuprofen every 8 hours as needed for pain, 650 mg of Tylenol every 4-6 hours, do not exceed 4 g in 24 hours Potassium as prescribed until completed Follow-up with gynecology at your appointment scheduled tomorrow as it is important to evaluate why you are bleeding your ultrasound today does not show any concerning findings try taking simethicone regularly for the next several days with a low fiber diet should you have persistent or worsening pain, please follow-up for reevaluation and possible additional imaging Medical Decision Making Patient appears well, she is a very low risk for pelvic inflammatory disease and ovarian torsion, and given history and Patient has tenderness, she has vaginal bleeding, likely secondary to burning cervical tissue being explained She does not have active bleeding at this time reportedly Her diagnostic labs are reassuring although she is hypokalemic, she is supplemented with 40 mEq of potassium She had a pelvic ultrasound that is pending She is in no acute distress declines any pain medication Discussed performing CT scan, patient prefers to try ycjy-mbb-mrjasks medications and she will return should she have persistent or worsening pain Ultrasound does not show acute pathology per radiology dictation on my review She is discharged home in stable condition with stable vital She is encouraged to follow-up at her appointment with JAWBONE PULLER tomorrow at 3 PM for further evaluation of vaginal bleeding post hysterectomy Differential Diagnosis Differential Diagnosis: Ovarian cyst, vaginal bleeding, urinary tract infection, gastroenteritis Medical Records Medical records reviewed: Yes I reviewed the patient's medical records. Lab Data Lab results reviewed: Yes I reviewed the patient's lab results. HPI This 40-year-old female presents with report pelvic pain which started 3 days ago with vaginal bleeding. Patient denies any dyspareunia. She denies any fever or chills. She denies dysuria or frequency. She denies any hematuria. She states that she noticed some blood when she wiped yesterday and blood was unusual she is status post hysterectomy and did a vaginal exam and noted blood. Denies history of similar symptoms since her hysterectomy. Ovaries remain in place per patient. Denies any trauma. States her pain began abruptly while she was in a seated position. Denies exacerbation of pain with walking or movement. Denies any additional complaints at this time. General Date/Time Provider Initiated Documentation: 09/25/20 13:40 . Related Data Home Medications Medication Instructions Recorded Confirmed hydroxyzine HCl 25 mg PO BID PRN 08/02/16 09/25/20 ondansetron 4 mg PO Q8H PRN tab-cap 08/02/16 09/25/20 prochlorperazine [Compazine] 25 mg RC Q12H PRN PRN supp.rect 08/02/16 09/25/20 erenumab-aooe 70 mg/mL 140 mg SC QMONTH 08/16/18 09/25/20 subcutaneous auto-injector glycopyrronium tosylate 2.4 % 1 applic TP DAILY 08/01/19 09/25/20 towelette naproxen sodium 550 mg PO Q12H PRN 01/15/20 09/25/20 almotriptan malate 12.5 mg tablet 12.5 mg PO ONCE PRN 08/08/20 09/25/20 magnesium oxide 400 mg PO DAILY 08/08/20 09/25/20 rimegepant 75 mg disintegrating 75 mg PO ONCE PRN 02/19/21 04/08/21 tablet potassium chloride 20 meq PO DAILY #7 tab 09/25/20 Previous Rx's Medication Instructions Recorded potassium chloride 20 meq PO DAILY #7 tab 09/25/20 Allergies Allergy/AdvReac Type Severity Reaction Status Date / Time ketorolac [From Toradol] AdvReac Severe Agitation Verified 01/15/20 12:46 doxycycline AdvReac Intermediate Nausea Verified 01/15/20 12:46 General Stated Complaint: Abd Prob TORY: 3 Review of Systems Narrative: Review of systems obtained x7 aside from where indicated in HPI [facility] Medical History (Updated 09/25/20 @ 15:22 by JUAN A William) Fibrocystic breast changes Migraine (11/04/11) Small fiber neuropathy Urticaria, chronic Surgical History Hysterectomy, Laproscopic (02/26/16) S/P laparoscopic supracervical hysterectomy prophylactic bilateral distal salpingectomy SALPINGECTOMY B/L (02/26/16) Family History Mother Diabetes Essential hypertension Depression Hyperlipidemia Thyroid disease Father Alcohol abuse Essential hypertension Hyperlipidemia Sister Essential hypertension Hyperlipidemia Grandfather Myocardial infarction Grandfather Personal history of malignant neoplasm BLADDER/LUNG Grandmother Personal history of malignant neoplasm COLON Grandmother Diabetes Social History Smoking/Tobacco Use Status: Former Tobacco Use Tobacco: How many years used: 3 Smoking risk assessment performed?: Yes Alcohol Intake: never Drug use: Never Substance use type: does not use Household members: family Housing: house Number of Children: 2 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 Pets and animals: Yes (cats,dogs and geese) Pets and animals: cat(s), dog(s) and farm animals Sexually active: Yes ( control: vastectomy and hysterectomy) What is your relationship status?: Panel score (0-1 are the most socially isolated patients): 1 What type of physical activity do you participate in: regular exercise Seatbelt use: always Helmet use: Yes Drive intox or ride w/intox service parts driver: No Do you feel safe at home: Yes Do you feel safe in your relationship?: Yes Female Reproductive History Menstrual Menopause type: surgical History History 2 Para 2 Hx # Term Pregnancies Multiple births Hx # Pregnancies Ectopic pregnancies AB induced Hx Number of Living Children AB spontaneous Exam Const General: cooperative and comfortable Chest Chest: normal inspection of the chest Resp Effort & Inspection: normal respiratory effort Cardio Rate: regular rate Rhythm: regular rhythm GI Other: No CVA tenderness Mild left lower quadrant tenderness on exam No rebound or guarding Skin General skin exam: no rashes or lesions noted Neuro General: patient alert and patient oriented x3 Course Vital Signs Vital signs: Vital Signs Temperature 36.6 C 09/25/20 13:27 Pulse 80 09/25/20 13:27 Respiratory Rate 14 09/25/20 13:27 Blood Pressure 127/77 09/25/20 13:27 Pulse Oximetry 100 09/25/20 13:27 Temperature 36.6 C 09/25/20 13:27 Temperature Source Skin 09/25/20 13:27 Pulse 80 09/25/20 13:27 Respiratory Rate 14 09/25/20 13:27 Respiratory Effort 09/25/20 13:32 Blood Pressure 127/77 09/25/20 13:27 Blood Pressure Position Sitting 09/25/20 13:27 Pulse Oximetry 100 09/25/20 13:27 Oxygen Delivery Method Room Air 09/25/20 13:27 Oxygen Flow Rate 0 09/25/20 13:27 Pain Level 7 09/25/20 13:27
[2020-09-25 14:14] LABS: Bilirubin Negative (Negative); Blood Negative (Negative); Clarity Clear (Clear); Glucose Negative (Negative); Ketones Negative (Negative); Leukocyte Esterase Negative (Negative); Nitrite Negative (Negative); Specific Gravity 1.025 (1.005-1.025); Urobilinogen 0.2 EU/dL (Up TO 0.2); pH 6.5 (5-8)
[2020-09-25 14:24] LABS: Abs Immature Grans 0.02 10^3/uL (0.0-0.06); Absolute Basophil Count 0.02 10^3/uL (0.0-0.2); Absolute Eosinophil Count 0.85 10^3/uL (0.0-0.7); Absolute Lymphocyte Count 1.47 10^3/uL (1.2-3.4); Absolute Monocyte Count 0.38 10^3/uL (0.1-0.8); Absolute Neutrophil Count 3.61 10^3/uL (1.2-6.7); Basophils % 0.3; Eosinophils % 13.4; HCT 38.7 % (36.0-46.0); HGB 13.2 g/dL (11.2-15.7); Immature Grans % 0.3; Lymphocytes % 23.1; MCH 30.8 pg (27.0-33.0); MCHC 34.1 % (32.0-36.0); MCV 90.2 fL (80-95); Neutrophils % 56.9; Nucleated RBC 0 %; Platelet Count 229 10^3/uL (130-400); RBC 4.29 10^6/uL (3.93-5.22); RDW 12.4 % (11.7-14.6); RDW-SD 41.2 fL; WBC 6.35 10^3/uL (4.4-10.8)
[2020-09-25 14:38] LABS: ALT 16 U/L (14-59); AST 11 U/L (15-37); Albumin 3.9 g/dL (3.4-5.0); Alkaline Phosphatase 50 U/L (46-116); Anion Gap 6.8 mmol/L (3-11); BUN 17 mg/dL (7-18); Bilirubin, Total 0.2 mg/dL (0.2-1.0); CO2 28.2 mmol/L (21.0-32.0); CREATININE 0.8 mg/dL (0.55-1.02); Calcium 9.1 mg/dL (8.5-10.1); Chloride 104 mmol/L (98-107); Glucose 97 mg/dL (74-106); Sodium 139 mmol/L (136-145); Total Protein 7.1 g/dL (6.4-8.2)
[2020-09-25] MEDS: Potassium Chloride 20 MEQ TABCR 40 MEQ PO (15:34)
[2020-09-25 16:39] VITALS: BP 103/67; PULSE 72; RESP 20; O2SAT 100
== END 2020-09-25 16:42 | disposition home or self-care (01) ==
PROVIDERS: Emergency Provider Physician Assistant; PCP Nurse Practitioner
DX: N93.8 Other specified abnormal uterine and vaginal bleeding (principal); R10.2 Pelvic and perineal pain; E87.6 Hypokalemia
CPT/HCPCS: 36415; 80053; 99284; 76830; 76856; 81003; 85025

== ENCOUNTER 2020-10-02 16:35 | Outpatient (REF) | payer BC, SELFPAY | END 2020-10-02 16:36 | disposition home or self-care (01) | LOC: LBN 16:35 | PROVIDERS: PCP Nurse Practitioner; Visit Provider Nurse Practitioner Family | DX: R35.0 Frequency of micturition (principal) | CPT/HCPCS: 87086 ==

== ENCOUNTER 2020-12-23 15:03 | Outpatient (CLI) | payer BC, SELFPAY ==
--- NOTE | 2020-12-23 14:30 | DI.RAD_ITS ---
Exam(s) XR SHOULDER RT COMPLETE 2+V EXAM: XR SHOULDER RT COMPLETE 2+V CLINICAL HISTORY: F/U. TECHNIQUE: 2D digital imaging was performed. COMPARISON: No exams were available for comparison FINDINGS: BONES: No acute fracture is present. No bony destructive lesion is seen. JOINTS: No dislocation present. SOFT TISSUE: Normal. IMPRESSION: Unremarkable radiographs of the right shoulder. DATA REPOSITORY: RADIATION DOSE DELIVERED:
== END 2020-12-23 15:04 | disposition home or self-care (01) ==
LOC: DIORS 15:04
PROVIDERS: PCP Nurse Practitioner; Referring Provider Nurse Practitioner; Visit Provider Student in an Organized Health Care Education/Training Program
DX: M25.511 Pain in right shoulder (principal)
CPT/HCPCS: 73030

== ENCOUNTER 2021-02-05 09:39 | Outpatient (CLI) | payer OTHER, SELFPAY ==
[2021-02-06 18:34] LABS: COVID-19 RT-PCR UVMMC Result Negative (Negative)
== END 2021-02-05 09:40 | disposition home or self-care (01) ==
PROVIDERS: PCP Nurse Practitioner; Visit Provider Nurse Practitioner Family
DX: Z20.822 Contact with and (suspected) exposure to COVID-19 (principal)
CPT/HCPCS: U0003

== ENCOUNTER 2021-05-30 08:34 | Emergency (ER) | payer OTHER, SELFPAY ==
--- NOTE | 2021-05-30 08:30 | DI.RAD_ITS ---
Exam(s) XR WRIST RT COMPLETE EXAM: XR WRIST RT COMPLETE CLINICAL HISTORY: fall/pain. TECHNIQUE: 2D digital imaging was performed of the right wrist. Three views were obtained. PA, lat eral and oblique views were obtained. COMPARISON: No exams were available for comparison FINDINGS: BONES: There is a nondisplaced acute intra-articular fracture at the medial aspect of the distal radi us. No bony destructive lesion is seen. JOINTS: The carpal bones are normally aligned. SOFT TISSUE: Normal. IMPRESSION: Nondisplaced distal radial fracture as described. DATA REPOSITORY: RADIATION DOSE DELIVERED:
--- NOTE | 2021-05-30 08:30 | DI.RAD_ITS ---
Exam(s) XR SHOULDER RT COMPLETE 2+V EXAM: XR SHOULDER RT COMPLETE 2+V CLINICAL HISTORY: fall/pain. TECHNIQUE: 2D digital imaging was performed of the right shoulder. Four images were obtained. AP, Grashey, Y-view and axillary views were obtained. COMPARISON: CR XR SHOULDER RT COMPLETE 2+V from 12/23/2020 FINDINGS: BONES: No acute fracture is present. No bony destructive lesion is seen. JOINTS: No dislocation present. SOFT TISSUE: Normal. IMPRESSION: Unremarkable radiographs of the right shoulder. DATA REPOSITORY: RADIATION DOSE DELIVERED:
--- NOTE | 2021-05-30 08:30 | DI.RAD_ITS ---
Exam(s) XR ELBOW RT COMPLETE EXAM: XR ELBOW RT COMPLETE CLINICAL HISTORY: fall/pain. TECHNIQUE: 2D digital imaging was performed of the left elbow. Three images were obtained. AP, lat eral and oblique views were obtained. COMPARISON: No exams were available for comparison FINDINGS: BONES: No acute fracture is present. No bony destructive lesion is seen. JOINTS: The elbow is normally aligned. No joint effusion is seen. SOFT TISSUE: Normal. IMPRESSION: Unremarkable radiographs of the right elbow. DATA REPOSITORY: RADIATION DOSE DELIVERED:
--- NOTE | 2021-05-30 08:38 | W.ED.GENAD ---
Discharge Plan Disposition Patient Disposition: HOME Condition: Stable Discharge Details Clinical Impression: Distal radius fracture, right Primary Care Provider: Merlyn Pena ED Provider: Rafael Maza Home Meds and New Rx's Prescriptions: New oxycodone-acetaminophen [Percocet] 5-325 mg tablet 1 tab PO Q8H PRNQty: 8 RF: 0 Continued Aimovig Autoinjector (2 Pack) 70 mg/mL auto-injector 140 mg SC QMONTH RF: 0 prochlorperazine [Compazine] 25 MG suppository 25 mg RC Q12H PRN PRNRF: 0 hydroxyzine HCl 25 MG tablet 25 mg PO BID PRNRF: 0 ondansetron 4 MG tablet,disintegrating 4 mg PO Q8H PRN RF: 0 Qbrexza 2.4 % towelette 1 applic TP DAILY RF: 0 magnesium oxide 400 mg magnesium capsule 400 mg PO DAILY RF: 0 Nurtec ODT 75 mg tablet,disintegrating 75 mg PO ONCE PRNRF: 0 almotriptan malate 12.5 mg tablet 12.5 mg PO ONCE PRN (Reason: migraine headache) RF: 0 naproxen sodium 550 MG tablet 550 mg PO Q12H PRNRF: 0 potassium chloride 20 mEq tablet,ER particles/crystals 20 meq PO DAILY Qty: 7 RF: 0 Discharge Instructions Instructions: Wrist Fracture in Adults (ED) Additional Instructions: Percocet as directed, this medication may cause drowsiness and/or constipation. You may consider taking an lecw-jvz-ycdsewk stool softener while taking this medication. Rest, elevate, cool compresses every 2 hours for 20 minutes. Please watch for new or worsening symptoms and return to the ER for any concerns. I have placed you on the orthopedic list, please contact their office on Tuesday to set up an outpatient reevaluation. You may also take ugnv-rbo-hetdbth Motrin. You may also take jbgm-oqb-istrnch Tylenol, do not exceed 4 g daily, remember there is Tylenol in your dose of Percocet. Referrals: Filemon Goode MD [ [facility] STAFF [facility]YSICIAN] - Discharge Data Discharge Date/Time-TO BE ENTERED AT DEPARTURE: 05/30/21 10:05 Medical Decision Making 41-year-old female, [id number], presents with right arm pain status post mechanical fall. Reports shoulder, elbow, wrist pain, clinically wrist is most impressive. Neuro, vascular, tendon intact. Will obtain x-ray of wrist, elbow, shoulder. Patient will be given a single dose of Percocet in the meantime. X-rays reviewed by me, shoulder and elbow unremarkable, wrist, there appears to be a subtle nondisplaced transverse distal radial fracture. This was reviewed with Dr. Perez as well. Discussed x-ray findings with patient. Plan is to place her into a Ortho-Glass wrist splint and have her follow-up orthopedics. Patient is comfortable this plan has no additional questions or concerns. Neuro, vascular, tendon intact status post splint application as examined by me Standard discharge and return precautions provided It should be noted that the virtual radiology read came in after the patient had been discharged. Initially read the wrist x-ray as unremarkable but after we spoke they reported they could see the subtle lucency in the distal radius. Given she is clinically tender there a fracture is reasonable, could obtain CT imaging for further evaluation. I do not believe it is necessary to contact the patient to have her come back to the ER emergently for this. Clinically I believe she has a fracture and the plan will be to follow-up with orthopedics. At that time they can certainly obtain CT imaging if indicated. This documentation was generated using [employer] dictation system, please disregard any oddities of phrase or misspellings. Medical Records Medical records reviewed: Yes I reviewed the patient's medical records. Imaging Data Radiologic Study: Attestation: I personally reviewed and interpreted this imaging study as follows: Imaging: X-Ray Radiologist's impression: PROCEDURE INFORMATION: Exam: XR Right Elbow Exam date and time: 05/30/2021 8:43 AM Age: 41 years old Clinical indication: Other: Fall/pain TECHNIQUE: Imaging protocol: XR Right elbow. Views: 3 or more views. COMPARISON: MR UPPER EXTREMITIES ADULT 01/22/2021 3:08 PM FINDINGS: Bones/joints: No acute fracture or dislocation. Soft tissues: Unremarkable. IMPRESSION: No acute fracture or dislocation. Radiologic Study #2: Attestation: I personally reviewed and interpreted this imaging study as follows: Imaging: X-Ray Radiologist's impression: PROCEDURE INFORMATION: Exam: XR Right Shoulder Exam date and time: 05/30/2021 8:43 AM Age: 41 years old Clinical indication: Other: Fall/pain TECHNIQUE: Imaging protocol: XR Right shoulder. Views: 2 or more views. COMPARISON: CR XR SHOULDER RT COMPLETE 2+V 12/23/2020 3:04 PM FINDINGS: Bones/joints: No acute fracture or dislocation. Soft tissues: Unremarkable. IMPRESSION: No acute fracture of dislocation. Thank you for allowing us to participate in the care of your patient. Radiologic Study #3: Attestation: I personally reviewed and interpreted this imaging study as follows: Imaging: X-Ray Radiologist's impression: Addendum created by Justice Guillermo DO on 05/30/2021 10:53 AM Eastern Time ([place] & [place]): This case was discussed with Dr. Maza by Dr. Guillermo at approximately 9:48 a.m. on 05/30/2021 by phone. Central standard time. The patient was reportedly very tender in the region of the distal radius and on further review of the images there is subtle vertical and horizontal lucency through the distal radius which could be projectional however an acute fracture is also possible. CT of the wrist would be recommended for further investigation/evaluation. Initial Report created on 05/30/2021 10:34 AM Eastern Time ([place] & [place]): PROCEDURE INFORMATION: Exam: XR Right Wrist Exam date and time: 05/30/2021 8:43 AM Age: 41 years old Clinical indication: Other: Fall/pain TECHNIQUE: Imaging protocol: XR Right wrist. Views: 3 or more views. COMPARISON: MR UPPER EXTREMITIES ADULT 01/22/2021 3:08 PM FINDINGS: Bones/joints: No acute fracture or dislocation. Soft tissues: Mild soft tissue swelling about the wrist. IMPRESSION: Mild soft tissue swelling about the wrist without acute fracture or dislocation. Thank you for allowing us to participate in the care of your patient. HPI General Mode of arrival: ambulatory. Date/Time Provider Initiated Documentation: 05/30/21 08:35. Limitations to Documentation: no limitations. Information obtained by: patient. HPI Narrative: This is a 41-year-old female, [id number], presenting to the ER for evaluation of right arm pain status post mechanical slip and fall just prior to arrival. She slipped on ice, falling backwards landing on her buttocks but attempted to catch herself with her right arm. She states that she is due for right shoulder surgery. Reports the pain is worse in her wrist but has pain specifically when her elbow and shoulder as well. She denies any other injury, nausea, head injury, neck pain, numbness, tingling, weakness. Reports the pain is moderate to severe worse with movement. She has not taken any medications prior to arrival. Related Data Home Medications Medication Instructions Recorded Confirmed hydroxyzine HCl 25 mg PO BID PRN 08/02/16 05/30/21 ondansetron 4 mg PO Q8H PRN tab-cap 08/02/16 05/30/21 prochlorperazine [Compazine] 25 mg RC Q12H PRN PRN supp.rect 08/02/16 05/30/21 erenumab-aooe 70 mg/mL 140 mg SC QMONTH 08/16/18 05/30/21 subcutaneous auto-injector glycopyrronium tosylate 2.4 % 1 applic TP DAILY 08/01/19 05/30/21 towelette naproxen sodium 550 mg PO Q12H PRN 01/15/20 05/30/21 almotriptan malate 12.5 mg tablet 12.5 mg PO ONCE PRN 08/08/20 05/30/21 magnesium oxide 400 mg PO DAILY 08/08/20 05/30/21 rimegepant 75 mg disintegrating 75 mg PO ONCE PRN 08/08/20 05/30/21 tablet potassium chloride 20 meq PO DAILY #7 tab 09/25/20 05/30/21 oxycodone-acetaminophen [Percocet] 1 tab PO Q8H PRN #8 tab 05/30/21 Previous Rx's Medication Instructions Recorded potassium chloride 20 meq PO DAILY #7 tab 09/25/20 oxycodone-acetaminophen [Percocet] 1 tab PO Q8H PRN #8 tab 05/30/21 Allergies Allergy/AdvReac Type Severity Reaction Status Date / Time ketorolac [From Toradol] AdvReac Severe Agitation Verified 05/30/21 08:44 doxycycline AdvReac Intermediate Nausea Verified 05/30/21 08:44 General TORY: 3 Review of Systems Constitutional Constitutional: Denies headache(s) and Denies weakness ENT Ears, Nose, Mouth, and Throat: Denies headache(s) Gastrointestinal Gastrointestinal: Denies nausea Musculoskeletal Musculoskeletal: Reports arthralgias, Denies numbness, Reports stiffness and Denies tingling Integumentary/Breasts Skin/Breast: Denies erythema Neurologic Neurologic: Denies headache(s), Denies numbness, Denies tingling and Denies weakness PFSH All Active Problems (Updated 05/30/21 @ 09:40 by JUAN A Tiwari) Distal radius fracture, right (Acute) Bursitis of right shoulder (Acute) Impingement syndrome of right shoulder (Acute) Traumatic tear of right rotator cuff (Acute) Bacterial vaginal infection (Acute) Biceps tendonitis on right (Acute) Injury of right glenoid labrum (Acute) Right shoulder pain (Acute) Vaginal bleeding (Acute) Pelvic pain (Acute) Hypokalemia (Acute) Muscle pain (Acute) Urticaria, chronic (Acute) Fatigue (Acute) Fibromyalgia (Acute) Idiopathic small fiber peripheral neuropathy (Acute) Other acne (Acute) Hyperhidrosis (Acute) Hair thinning (Acute) Small fiber neuropathy (Acute) Fatigue (Acute) Rash (Acute) Joint pain (Acute) Fracture of left wrist (Acute) Gastritis (Acute 12/17/06) Proctocele (Acute) Tobacco use disorder (Acute) Anxiety (Chronic) Fibrocystic breast changes (Acute) S/P laparoscopic supracervical hysterectomy (Chronic) Migraine (Acute 11/04/11) Surgical History Hysterectomy, Laproscopic (02/26/16) SALPINGECTOMY B/L (02/26/16) Family History Mother Diabetes Essential hypertension Depression Hyperlipidemia Thyroid disease Father Alcohol abuse Essential hypertension Hyperlipidemia Sister Essential hypertension Hyperlipidemia Grandfather Myocardial infarction Grandfather Personal history of malignant neoplasm BLADDER/LUNG Grandmother Personal history of malignant neoplasm COLON Grandmother Diabetes Social History Smoking/Tobacco Use Status: Former Tobacco Use Tobacco: How many years used: 3 Smoking risk assessment performed?: Yes Alcohol Intake: never Drug use: Never Substance use type: does not use Household members: family Housing: house Number of Children: 2 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 Pets and animals: Yes (cats,dogs and geese) Pets and animals: cat(s), dog(s) and farm animals Sexually active: Yes ( control: vastectomy and hysterectomy) What is your relationship status?: Panel score (0-1 are the most socially isolated patients): 1 What type of physical activity do you participate in: regular exercise Seatbelt use: always Helmet use: Yes Drive intox or ride w/intox pick up truck driver: No Do you feel safe at home: Yes Do you feel safe in your relationship?: Yes Female Reproductive History Menstrual Menopause type: surgical History History 2 Para 2 Hx # Term Pregnancies Multiple births Hx # Pregnancies Ectopic pregnancies AB induced Hx Number of Living Children AB spontaneous Exam Const General: cooperative, healthy appearing, comfortable and no acute distress Orientation: alert and awake HENMT Head: normal to inspection, normocephalic and atraumatic Eyes General: appearance normal, both eyes and all related structures Conjunctivae: conjunctivae normal Neck Neck: normal visual inspection, trachea midline and supple Resp Effort & Inspection: normal respiratory effort and able to speak in complete sentences Cardio Rate: regular rate Rhythm: regular rhythm Skin General skin exam: no rashes or lesions noted Neuro General: patient alert, patient awake, moves all extremities and no focal motor deficits Cognition: normal cognition Speech: speech normal Motor: muscle tone normal throughout Sensory Exam: no sensory deficits noted Extrem Other: Right upper extremity, shoulder, elbow, unremarkable visual examination. Diffuse shoulder and elbow discomfort to palpation but there is no deformity or bony point tenderness. Full range of motion. 5/5 strength. Distal forearm, wrist with diffuse discomfort mild swelling worse over the distal radial aspect. Skin is intact. Limited range of motion secondary to discomfort. Hand full range of motion. Normal radial pulse and capillary refill. Psych Appearance: grossly normal Mental Status: mental status grossly normal Procedures Orthopedic Splinting/Casting Injury #1: Side: right Upper Extremity Injury Location: wrist Upper Extremity Immobilizer: wrist splint (Ortho-Glass)
[2021-05-30 08:42] VITALS: BP 122/75; PULSE 108; RESP 16; TEMP 36.5; O2SAT 100
[2021-05-30] MEDS: oxyCODONE 5 mg/Acetaminophen 325 mg TAB 1 TAB PO (08:52)
[2021-05-30 09:59] VITALS: BP 122/75; PULSE 108; RESP 16; TEMP 36.5; O2SAT 100
--- NOTE | 2021-05-30 10:35 | DI.VRAD_ITS ---
PROCEDURE INFORMATION: Exam: XR Right Elbow Exam date and time: 05/30/2021 8:43 AM Age: 41 years old Clinical indication: Other: Fall/pain TECHNIQUE: Imaging protocol: XR Right elbow. Views: 3 or more views. COMPARISON: MR UPPER EXTREMITIES ADULT 01/22/2021 3:08 PM FINDINGS: Bones/joints: No acute fracture or dislocation. Soft tissues: Unremarkable. IMPRESSION: No acute fracture or dislocation. Dictated and Authenticated by: Justice Guillermo MD. Ordering:MUKUND Hall MD
--- NOTE | 2021-05-30 10:35 | DI.VRAD_ITS ---
Addendum created by Justice Guillermo DO on 05/30/2021 10:53:32 AM EST: This case was discussed with Dr. Maza by Dr. Guillermo at approximately 9:48 a.m. on 05/30/2021 by phone. Central standard time. The patient was reportedly very tender in the region of the distal radius and on further review of the images there is subtle vertical and horizontal lucency through the distal radius which could be projectional however an acute fracture is also possible. CT of the wrist would be recommended for further investigation/evaluation. Initial report created on 05/30/2021 10:34:21 AM EST: PROCEDURE INFORMATION: Exam: XR Right Wrist Exam date and time: 05/30/2021 8:43 AM Age: 41 years old Clinical indication: Other: Fall/pain TECHNIQUE: Imaging protocol: XR Right wrist. Views: 3 or more views. COMPARISON: MR UPPER EXTREMITIES ADULT 01/22/2021 3:08 PM FINDINGS: Bones/joints: No acute fracture or dislocation. Soft tissues: Mild soft tissue swelling about the wrist. IMPRESSION: Mild soft tissue swelling about the wrist without acute fracture or dislocation. Dictated and Authenticated by: Justice Guillermo MD. Ordering:MUKUND Hall MD
--- NOTE | 2021-05-30 10:45 | DI.VRAD_ITS ---
PROCEDURE INFORMATION: Exam: XR Right Shoulder Exam date and time: 05/30/2021 8:43 AM Age: 41 years old Clinical indication: Other: Fall/pain TECHNIQUE: Imaging protocol: XR Right shoulder. Views: 2 or more views. COMPARISON: CR XR SHOULDER RT COMPLETE 2+V 12/23/2020 3:04 PM FINDINGS: Bones/joints: No acute fracture or dislocation. Soft tissues: Unremarkable. IMPRESSION: No acute fracture of dislocation. Dictated and Authenticated by: Justice Guillermo MD. Ordering:MUKUND Hall MD
== END 2021-05-30 10:05 | disposition home or self-care (01) ==
PROVIDERS: Emergency Provider Physician Assistant; PCP Nurse Practitioner
DX: S52.591A Other fractures of lower end of right radius, initial encounter for closed fracture (principal); M25.511 Pain in right shoulder; M25.521 Pain in right elbow; W01.0XXA Fall on same level from slipping, tripping and stumbling without subsequent striking against object, initial encounter
CPT/HCPCS: 29125; 99283; 73030; 73080; 73110

== ENCOUNTER 2021-06-03 08:30 | Outpatient (CLI) | payer OTHER, SELFPAY ==
--- NOTE | 2021-06-03 08:00 | DI.RAD_ITS ---
Exam(s) XR WRIST RT COMPLETE EXAM: XR WRIST RT COMPLETE CLINICAL HISTORY: right distal radius fracture. TECHNIQUE: 2D digital imaging was performed. COMPARISON: CR,XR XR WRIST RT COMPLETE from 05/30/2021 FINDINGS: Again noted is the nondisplaced fracture of distal radius. Exhibits minimal change from 05/30/2021. Ulnar styloid is intact. Scaphoid intact. No significant ulnar variance. IMPRESSION: No significant radiographic change compared 05/30/2021 DATA REPOSITORY: RADIATION DOSE DELIVERED:
== END 2021-06-03 08:31 | disposition home or self-care (01) ==
LOC: DIORS 08:31
PROVIDERS: PCP Nurse Practitioner; Referring Provider Nurse Practitioner; Visit Provider Physician Assistant
DX: S52.591D Other fractures of lower end of right radius, subsequent encounter for closed fracture with routine healing (principal); W10.8XXD Fall (on) (from) other stairs and steps, subsequent encounter
CPT/HCPCS: 73110

== ENCOUNTER 2021-06-15 10:55 | Outpatient (CLI) | payer OTHER, SELFPAY ==
--- NOTE | 2021-06-15 09:30 | DI.RAD_ITS ---
Exam(s) XR WRIST RT LIMITED EXAM: XR WRIST RT LIMITED CLINICAL HISTORY: RIGHT DISTAL RADIUS FRACTURE. TECHNIQUE: 2D digital imaging was performed. COMPARISON: CR XR WRIST RT COMPLETE from 06/03/2021 FINDINGS: Again noted is transverse nondisplaced fracture line in distal radius. This is more evident than on the prior images of 06/03/2021. in addition, on the lateral view there is no osteophytic density seen dorsally at fracture level. This may be some callus formation. No findings at the level of the ulnar styloid. No significant ulnar variance. IMPRESSION: DATA REPOSITORY: RADIATION DOSE DELIVERED:
== END 2021-06-15 10:56 | disposition home or self-care (01) ==
LOC: DIORS 10:56
PROVIDERS: PCP Nurse Practitioner; Referring Provider Nurse Practitioner; Visit Provider Physician Assistant
DX: S52.591D Other fractures of lower end of right radius, subsequent encounter for closed fracture with routine healing (principal); W10.8XXD Fall (on) (from) other stairs and steps, subsequent encounter
CPT/HCPCS: 73100

== ENCOUNTER 2021-07-14 15:27 | Outpatient (CLI) | payer BC, SELFPAY ==
--- NOTE | 2021-07-14 14:00 | DI.RAD_ITS ---
Exam(s) XR WRIST RT LIMITED EXAM: XR WRIST RT LIMITED CLINICAL HISTORY: right distal radius fx. TECHNIQUE: 2D digital imaging was performed of the right wrist. Two views were obtained. PA and la teral views were obtained. COMPARISON: CR XR WRIST RT LIMITED from 06/15/2021 FINDINGS: BONES: There has been continued healing of the distal right radial fracture. No new fracture or disl ocation is present. No bony destructive lesion is seen. JOINTS: The carpal bones are normally aligned. SOFT TISSUE: Normal. IMPRESSION: Continued healing of the distal right radial fracture. DATA REPOSITORY: RADIATION DOSE DELIVERED:
== END 2021-07-14 15:28 | disposition home or self-care (01) ==
LOC: DIORS 15:27
PROVIDERS: PCP Nurse Practitioner; Referring Provider Nurse Practitioner; Visit Provider Student in an Organized Health Care Education/Training Program
DX: S52.591D Other fractures of lower end of right radius, subsequent encounter for closed fracture with routine healing (principal); W10.8XXD Fall (on) (from) other stairs and steps, subsequent encounter
CPT/HCPCS: 73100

== ENCOUNTER 2021-08-12 01:15 | Outpatient (CLI) | payer BC, SELFPAY ==
[2021-08-12 12:17] LABS: Source Nasal/Nares
[2021-08-12 14:19] LABS: COVID-19 PCR Negative (Negative)
== END 2021-08-12 01:16 | disposition home or self-care (01) ==
LOC: LBO 01:15
PROVIDERS: PCP Nurse Practitioner; Visit Provider Student in an Organized Health Care Education/Training Program
DX: Z20.822 Contact with and (suspected) exposure to COVID-19 (principal)
CPT/HCPCS: 87635

== ENCOUNTER 2021-08-14 06:05 | Day surgery (SDC) | payer BC, SELFPAY ==
[2021-08-14] VITALS (9 sets, daily range): BP systolic 86–110; BP diastolic 39–83; PULSE 75–112; RESP 12–19; TEMP 36.2–36.4; O2SAT 96–100; BMI 25.3
[2021-08-14] MEDS: Lactated Ringers 1,000 ML 100 ML IV (06:45)
--- NOTE | 2021-08-14 06:50 | W.ANESPRE ---
General Info Date of Service Date Performed: 08/14/21 Height: 5 ft Weight: 58.8 kg Body Mass Index (BMI): 25.3 Surgical Procedure: Operation Date: 08/14/21 07:40 Proposed Procedure Side Surgeon p Shoulder Rotator Cuff Arthroscopic w/Extensive Debridement, Biceps tenodesis, Subcromial Decompression, possible Allograft Augmentation Right Filemon Goode MD Meds Allergies and Home Medications Allergies Allergy/AdvReac Type Severity Reaction Status Date / Time ketorolac [From Toradol] Allergy Severe Agitation-also Verified 08/14/21 06:10 see note doxycycline AdvReac Intermediate Nausea Verified 08/14/21 06:10 Home Medication Medication Instructions Recorded prochlorperazine 25 mg rectal 25 mg RC Q12H PRN PRN supp.rect 08/02/16 suppository (Compazine) erenumab-aooe 70 mg/mL 140 mg SC QMONTH 08/16/18 subcutaneous auto-injector (Aimovig Autoinjector 140 mg/2 Pack () glycopyrronium tosylate 2.4 % 1 applic TP DAILY 08/01/19 towelette (Qbrexza) naproxen sodium 550 mg tablet 550 mg PO Q12H PRN 01/15/20 almotriptan malate 12.5 mg tablet 12.5 mg PO ONCE PRN 08/08/20 magnesium oxide 400 mg PO DAILY 08/08/20 rimegepant 75 mg disintegrating 75 mg PO ONCE PRN 08/08/20 tablet (Nurtec ODT) fluticasone propionate 50 2 spray INTRANASAL DAILY #16 g 06/18/21 mcg/actuation nasal spray,suspension hydroxyzine HCl 25 mg tablet 25 mg PO BID PRN #30 tab 06/18/21 ondansetron 4 mg disintegrating 4 mg PO Q8H PRN #30 tab-cap 06/18/21 tablet Current Visit Medications: Current Medications Generic Name Dose Route Start Last Admin Trade Name Freq PRN Reason Stop Dose Admin Ringer's Solution 1,000 mls @ 100 mls/hr 08/14/21 06:00 08/14/21 06:45 IV 09/12/21 23:59 100 mls/hr INFUSION GRACE Administration Cefazolin Sodium/Dextrose 2 gm in 50 mls @ 100 mls/hr 08/14/21 06:00 Ancef Duplex IVPB 08/14/21 16:00 PREOP GRACE IV Miscellaneous Supplies 1 each 08/14/21 06:00 Iv Access IV 09/12/21 23:59 DIRECTED GRACE Sodium Chloride 0 ml 08/14/21 06:00 Normal Saline Flush 10 Ml Syr IV 09/12/21 23:59 PRN PRN Sodium Chloride 0 ml 08/14/21 06:00 Normal Saline 10 Ml Vial IJ 09/12/21 23:59 DIRECTED PRN Sterile Water 0 ml 08/14/21 06:00 Water,Injection,Sterile 10 Ml Vial IJ 09/12/21 23:59 DIRECTED PRN PFSH Active Problems Active Problems: Problem Status Onset Code Migraine 11/04/11 G43.909 S/P laparoscopic supracervical hysterectomy Z90.711 Fibrocystic breast changes N60.19 Anxiety F41.9 Tobacco use disorder F17.200 Proctocele N81.6 Gastritis 30 K29.70 Fracture of left wrist S62.102A Joint pain M25.50 Rash R21 Fatigue R53.83 Small fiber neuropathy G62.9 Hair thinning L65.9 Hyperhidrosis R61 Other acne L70.8 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 Fibromyalgia M79.7 Fatigue R53.83 Urticaria, chronic L50.8 Muscle pain M79.10 Vaginal bleeding N93.9 Pelvic pain R10.2 Hypokalemia E87.6 Biceps tendonitis on right M75.21 Bacterial vaginal infection N76.0, B96.89 Traumatic tear of right rotator cuff S46.011A Impingement syndrome of right shoulder M75.41 Bursitis of right shoulder M75.51 Distal radius fracture, right 12 S52.501A Surgical History Surgical History (Updated 08/12/21 @ 11:56 by Cameron Henson) History of surgery on left wrist Hysterectomy, Laproscopic (02/26/16) SALPINGECTOMY B/L (02/26/16) Tobacco Smoking/Tobacco Use Status: Former Tobacco Use Alcohol Alcohol Intake: never Substance Use Substance use: Never Substance use type: does not use Prental History History 2 Para 2 Hx # Term Pregnancies Multiple births Hx # Pregnancies Ectopic pregnancies AB induced Hx Number of Living Children AB spontaneous Vital Signs and Lab Results Vital Signs Most Recent Vital Signs in EMR: Most Recent Vital Signs Temp Pulse Resp BP Pulse Ox 36.2 C L 75 16 101/83 100 08/14/21 06:10 08/14/21 06:10 08/14/21 06:10 08/14/21 06:10 08/14/21 06:10 Lab Results Blood Type / Crossmatch: No Data to Display Complete Blood Count: No Data to Display Complete Metabolic Panel: No Data to Display Liver Function Panel: No Data to Display Coagulation Panel: No Data to Display Cardiac Panel: No Data to Display Arterial Blood Gas: No Data to Display Venous Blood Gas: No Data to Display Pancreas Panel: No Data to Display Thyroid Panel: No Data to Display Infectious Disease: Coronavirus (COVID-19)(PCR) Negative (Negative) 08/12/21 08:56 08/12/21 Coronavirus 2019 Source Nasal/Nares 08/12/21 08:56 08/12/21 Blood Cultures: No Data to Display Toxicology Panel: No Data to Display Panel: No Data to Display Anesthesia Assessment and Plan Anesthesia History Personal History: No History of Anesthesia Complications Family History: No Family History of Anesthesia Complications Exercise Tolerance Exercise Tolerance: Metabolic Equivalents>4 Pertinent Negatives Pertinent Negatives: No Symptoms of GERD Cardiac & Pulmonary Exam Cardiac Exam: Normal S1/S2 Heart Sounds Pulmonary Exam: Clear Bilateral Breath Sounds Implantable Cardiac Device Does patient have a Pacemaker or an ICD?: No Airway Exam Known Difficult Airway: No Mallampati Class: 2 Mouth Opening: Normal (> 3cm) Thyromental Distance: Greater than 3 cm Neck Range of Motion: Full ROM Neck Circumference: Normal Teeth Condition: Normal Dentition ASA Classification ASA Score: ASA 2 Emergency Case?: No NPO Status NPO Status: NPO Clears >2 hours, Solids >8 hours Status Status: History of Hysterectomy Anesthesia Plan Resuscitation Status: Full Code Anesthesia Technique: General Anesthesia Airway Planned: Endotracheal Tube Pain Management: Surgeon and patient request nerve block Monitors Used: Standard Monitors
[2021-08-14] MEDS: ceFAZolin 2 GM/50 ML BAG IVPB (07:31)
[2021-08-14] MEDS: EPINEPHrine 30 MG/30 ML VIAL (08:24)
--- NOTE | 2021-08-14 09:04 | W.ANESNERVE ---
Nerve Block Single Injection Procedure Date and Time Date Performed: 08/14/21 Procedure Start: 07:10 Location Where Procedure Performed Procedure Location: Day Surgery Unit Reason Performed: Postoperative Analgesia Requesting Provider: Filemon Goode Timeout Performed Timeout Performed: Yes Monitoring Used ECG, Blood Pressure and SpO2 Sterility Sterility: Hand Hygiene, Surgical Cap, Surgical Mask, Sterile Gloves and Chlorhexidine Sedation Given During Procedure Sedation Given (Indicate Dose Given): Versed IV Dose:: 2mg Patient Mental Status Patient Mental Status: Awake Nerve Block 1st Nerve Block: Laterality: Right Block Type: Supraclavicular Needle / Catheter Used: 100mm SonoPlex II Local Anesthetic Bolus (Indicate Dose Given): Lidocaine used for local infiltration of skin, Injected in 3-5ml increments after negative blood aspiration, Bupivacaine 0.5% Dose:: 10mg and Exparel Dose:: 10ml Additives (Indicate Dose Given): None Ultrasound: Sterile probe cover and gel used Ultrasound Image Saved?: Yes Nerve Stimulator: Not Used Paresthesia: None Procedure Tolerated: No Complications and Patient tolerated well Procedure Outcome: Successful Performed By: Geoffrey Majano
[2021-08-14] MEDS: ePHEDrine 25 MG/5 ML Syringe IVP (09:45)
--- NOTE | 2021-08-14 09:47 | W.PM.DSUDISC ---
Discharge Plan Disposition Patient Disposition: HOME Condition: Stable Discharge Details Reason For Visit: Right shoulder surgery Attending Provider: Filemon Goode Primary Care Provider: Merlyn Pena Home Meds and New Rx's Prescriptions: New aspirin 81 mg tablet,delayed release (DR/EC) 81 mg PO BID 30 Days Qty: 60 0RF naproxen 250 mg tablet 250 - 500 mg PO BID PRNQty: 40 0RF Rx Instructions: take with a meal oxycodone 5 mg tablet 5 - 10 mg PO Q4H MDD 30 mg PRN (Reason: moderate to severe pain) Qty: 18 0RF Continued ondansetron 4 mg tablet,disintegrating 4 mg PO Q8H PRN Qty: 30 3RF hydroxyzine HCl 25 mg tablet 25 mg PO BID PRN (Reason: nausea) Qty: 30 4RF fluticasone propionate 50 mcg/actuation spray,suspension 2 spray intranasal DAILY Qty: 16 2RF Rx Instructions: administer into each nostril Aimovig Autoinjector (2 Pack) 70 mg/mL auto-injector 140 mg SC QMONTH 0RF Label Comments: Dr [facility] [place] neuro prochlorperazine [Compazine] 25 MG suppository 25 mg RC Q12H PRN PRN0RF Qbrexza 2.4 % towelette 1 applic TP DAILY 0RF magnesium oxide 400 mg magnesium capsule 400 mg PO DAILY 0RF Nurtec ODT 75 mg tablet,disintegrating 75 mg PO ONCE PRN0RF Rx Instructions: as a single dose at onset of migraine; not to exceed 1 dose per 24 hrs OR 15 doses per 30 days almotriptan malate 12.5 mg tablet 12.5 mg PO ONCE PRN (Reason: migraine headache) 0RF naproxen sodium 550 MG tablet 550 mg PO Q12H PRN0RF Discharge Instructions Additional Instructions: Surgery: Right shoulder arthroscopy with biceps tenodesis, extensive debridement, and subacromial decompression. Activity: You should gradually increase range of motion motion and use of your shoulder. Please perform daily stretching exercises. You may use your shoulder for all regular activities. Avoid heavy lifting, reaching overhead, and lifting away from body for approximately 6 to 8 weeks. You may use the sling whenever you are out of the house for a few weeks. At home it is best to remove the sling and rest the arm on a pillow at your side or support the operative side with your other hand. A physical therapy prescription will be sent electronically to start in about 3 weeks. Prescriptions: Aspirin 81 mg take 1 daily to prevent a blood clot for 2 weeks Naproxen 250 mg take 1-2 every 12 hours with a meal as needed for moderate pain Oxycodone 5 mg take 1-2 every 4-6 hours as needed for severe pain You may use gjul-nuu-rbbvikh Tylenol (acetaminophen) as needed for mild pain. These pain medications may be taken all at once or in different combinations as needed. Also, recommend Colace (docusate) as a stool softener as surgery and pain medicine cause constipation. Dressings: Remove shoulder bandage after 3 days. Leave the sticky Steri-Strips in place until they fall off or remove them after you shower. Cover the incisions with Band-Aids or leave them open to air. You may shower after 5 days. Follow-up: 10-[address] Goode You may take off the leg compression stockings this evening at home. You may also leave them on a few days longer if you have a history of leg swelling or edema. Let us know right away if you develop any redness, drainage, fevers, chest pain, or trouble breathing. Do not drink alcohol or drive for at least 24 hours after anesthesia. Please call the office during business hours with any questions or concerns. Referrals: Filemon Goode MD [ [facility] STAFF PHYSICIAN] - Discharge Orders Discharge Orders: Discharge Order (Routine); Ordered 08/14/21 Ordered By: Filemon Goode DS: Diagnosis Discharge Diagnosis (1) Biceps tendonitis on right: Status: Acute (2) Traumatic tear of right rotator cuff: Status: Acute (3) Impingement syndrome of right shoulder: Status: Acute (4) Bursitis of right shoulder: Status: Acute
--- NOTE | 2021-08-14 09:50 | W.PM.OP ---
Date of service: 08/14/21 Time of Service: 07:30 Operative Note Operative Note DATE OF PROCEDURE: 08/14/21 PRE-OP DIAGNOSIS: Right: 1. Rotator cuff tear 2. LHB tendinopathy 3. Bursitis 4. Impingement POST-OP DIAGNOSIS: same PROCEDURE: Right: 1. Arthroscopic biceps tenodesis, CPT# 85516. This involved arthroscopically suturing and reattaching the long head of the biceps tendon to the proximal humerus at the superior margin of the bicipital groove with a screw at the correct tension. 2. Extensive debridement, CPT# 99062. This involved using arthroscopic hand instruments, power instruments, and radiofrequency instruments to release the long head of the biceps tendon and debride areas of labral tearing, synovitis, and partial articular sided rotator cuff tearing within the glenohumeral joint anteriorly, superiorly and posteriorly. 3. Subacromial decompression with partial acromioplasty, CPT# 67109. This involved using arthroscopic power instruments and a radiofrequency wand to complete a bursectomy and remove bone spurs on the undersurface of the acromion. The floor covering printer assistant was medically required in order to help assist in techniques above, which require positioning the arm, holding the arthroscope, and manipulating multiple instruments and sutures at the same time. This cannot be done without the help of an experienced floor covering printer assistant. SURGEON: Filemon Goode INSULATION BLOWER: Linda Danielle Refer to Anesthesia Record ESTIMATED BLOOD LOSS: 5 PATHOLOGY: none sent COMPLICATIONS: None Patient was transported to: PACU Patient's condition: stable Implants: Arthrex: 4.75mm SwiveLocks x 1 Indications: The patient was diagnosed with the above conditions and appropriately indicated for surgical intervention. Please see complete medical record for details. Findings: Exam under anesthesia: Full range of motion with no instability Glenohumeral joint: Moderate partial-thickness somewhat medial transcended supraspinatus rotator cuff tearing fraying less than 50% thickness largely in the supraspinatus anteriorly and centrally. Intact subscapularis. Supernatant leading edge fraying abrading on the long head biceps intra-articular segment with otherwise intact long head biceps tendon. Minimal type I SLAP tear. Intact articular cartilage surfaces. Intact anterior posterior labrum. Subacromial space: Mild bursitis. Intact bursal rotator cuff. Minimal undersurface acromial bone spur. Procedure Description: In the operating room, general anesthesia was induced. Bilateral shoulders were examined. The patient was positioned in the beachchair position. All bony prominences were well-padded. Preoperative antibiotics were administered. The shoulder was prepped and draped in the usual sterile fashion. The correct patient, procedure, and side of the procedure were all verified prior to incision. Starting through the posterior portal a standard complete diagnostic arthroscopy was performed of the glenohumeral joint including inspection of the long head of the biceps, anterior and superior labrum, subscapularis tendon, supraspinatus and infraspinatus tendons, and axillary recess. The glenoid and humeral head cartilage as well as the posterior labrum were inspected from an anterior viewing portal. Significant findings and interventions noted above. An all-arthroscopic suprapectoral biceps tenodesis was performed through an anterior portal using a Loop N Tack method with a SutureTape FiberLink cinched around and through the tendon. The biceps was tenotomized from the labrum and fixated with a suture anchor at the superior margin of the bicipital groove. Starting through the posterior portal, the arthroscope was directed into the subacromial space. A lateral 50 yard line lateral portal was created. A combination of power instruments and a radiofrequency ablator were used to debride bursitis anteriorly, posteriorly, and laterally as well as expose and smooth bone spurring on the undersurface of the acromion. The coracoacromial ligament was only minimally released. The bursectomy was completed viewing laterally and working from posteriorly and the rotator cuff was thoroughly inspected with findings noted above. Given the relatively uninflamed frayed but otherwise structurally intact articular rotator cuff without any significant bursal rotator cuff findings, decision was made to omit any rotator cuff takedown, repair, PASTA medialization of footprint repair, or bursal dermal allograft augmentation. The shoulder was drained of arthroscopic fluid. All portal sites were copiously irrigated. These incisions were closed using 3-0 Monocryl in a buried fashion and then covered with Mastisol, Steri-Strips, Xeroform, dry gauze, and ABDs. The dressings were covered and secured with Medipore tape. The operative extremity was placed into a sling for immobilization. The patient awoke from anesthesia without complication and was transferred to the recovery room in a stable condition.
--- NOTE | 2021-08-14 10:07 | W.ANESPOSTOP ---
Postoperative Evaluation Date, Time and Location Date Performed: 08/14/21 Time Performed: 10:07 Patient Location: PACU Vital Signs Most Recent Imported Vital Signs: Most Recent Vital Signs Temp Pulse Resp BP Pulse Ox 36.4 C L 96 H 12 110/66 99 08/14/21 10:00 08/14/21 10:00 08/14/21 10:00 08/14/21 10:00 08/14/21 10:00 Assessment Mental Status: Awake (Alert & Oriented to Patient Baseline) Airway and Respiratory Function: Patent airway with normal (patient baseline) respiratory exam Cardiovascular Function: Hemodynamically Stable Hydration Status: Adequately Hydrated Nausea & Vomiting: No Nausea or Vomiting Pain: Pt. Denies Any Pain Peripheral Nerve Block: Regional nerve block not resolved at time of post operative discharge
== END 2021-08-14 11:40 | disposition home or self-care (01) ==
PROVIDERS: PCP Nurse Practitioner; Visit Provider Student in an Organized Health Care Education/Training Program
PROC: (CPT 29827; principal; 2021-08-14 07:30)
DX: M75.21 Bicipital tendinitis, right shoulder (principal); M75.41 Impingement syndrome of right shoulder; M75.51 Bursitis of right shoulder; M75.101 Unspecified rotator cuff tear or rupture of right shoulder, not specified as traumatic
CPT/HCPCS: 29828; 29823; 29826; 76942; J0690; J1100; J2250; J2405; J2704

== ENCOUNTER 2022-02-26 01:41 | Outpatient (CLI) | payer BC, SELFPAY ==
[2022-02-26 09:15] LABS: Calculated LDL 126 mg/dL (<100); Cholesterol 208 mg/dL (<200); HDL Cholesterol 76 mg/dL (40-60); TSH (W/Ref FT4) 2.08 uIU/mL (0.36-3.74); Triglyceride 31 mg/dL (<150)
[2022-02-26 19:54] LABS: Estradiol 105 pg/mL (See Note)
[2022-02-26 20:43] LABS: FSH 10.2 mIU/mL (See Note); LH 2.9 mIU/mL (See Note)
== END 2022-02-26 01:42 | disposition home or self-care (01) ==
LOC: LBO 01:41
PROVIDERS: PCP Nurse Practitioner; Visit Provider Nurse Practitioner
DX: R23.2 Flushing (principal); Z13.220 Encounter for screening for lipoid disorders; R53.83 Other fatigue
CPT/HCPCS: 36415; 80061; 82670; 83001; 83002; 84443

== ENCOUNTER → 2022-03-12 00:22 | Outpatient (CLI) | payer BC, SELFPAY ==
--- NOTE | 2022-03-12 07:45 | DI.MAMMO_ITS ---
Exam(s) MAMMO SCREENING EXAM: MAMMO SCREENING CLINICAL HISTORY: screening,Z12.39. TECHNIQUE: Bilateral full field digital CC and MLO mammographic images were obtained with 3D tomosyn thesis and utilizing computer aided detection (CAD). COMPARISON: 2017 and 2019 FINDINGS: Masses/Architectural Distortion: None seen. Microcalcifications: No suspicious pleomorphic-type are seen. Skin Thickening/Nipple Retraction: None. IMPRESSION: 1. No significant interval change with no specific features of malignancy noted. 2. Unless there is more urgent need, annual screening mammography is recommended, as per [place] [employer] guidelines. BI-RADS Category 1-negative Breast Density - Category D - extremely dense Breast Density Category D: The mammogram demonstrates the patient's breast tissue is dense. Dense alexi ast tissue is very common and is not abnormal but dense breast tissue can make it harder to find canc er on a mammogram. Also, dense breast tissue may increase their breast cancer risk. This information about the result of the mammogram report was provided to the patient to raise their awareness. Use th is report when you speak with the patient about their risks for breast cancer, which includes their f amily history. At that time, you may recommend for more screening tests (Ultrasound or MRI) as they m ight be useful based on their risk. A negative radiographic report should not delay biopsy if a dominant or clinically suspicious mass is present. Up to ten percent of cancers are not identified on mammography. A negative report may reinforce clinical impression. Adenosis and dense breasts may obscure an underlying neoplasm. False positive reports average 6 to 10%.
== END ==
PROVIDERS: PCP Nurse Practitioner; Visit Provider Nurse Practitioner
DX: Z12.31 Encounter for screening mammogram for malignant neoplasm of breast (principal); R92.8 Other abnormal and inconclusive findings on diagnostic imaging of breast
CPT/HCPCS: 77063; 77067

== ENCOUNTER 2022-03-23 13:23 | Outpatient (CLI) | payer BC, SELFPAY ==
--- NOTE | 2022-03-23 13:00 | DI.RAD_ITS ---
Exam(s) XR HAND RT COMPLETE EXAM: XR HAND RT COMPLETE CLINICAL HISTORY: hand pain. TECHNIQUE: 2D digital imaging was performed. COMPARISON: CR LEFT WRIST COMPLETE from 09/30/2008 FINDINGS: 3 views No evidence fracture nor dislocation. No osseous lesions nor erosions. No radiopaque foreign body. IMPRESSION: No significant findings. DATA REPOSITORY: RADIATION DOSE DELIVERED:
== END 2022-03-23 13:24 | disposition home or self-care (01) ==
LOC: DIORS 13:23
PROVIDERS: PCP Nurse Practitioner; Referring Provider Nurse Practitioner; Visit Provider Student in an Organized Health Care Education/Training Program
DX: M79.641 Pain in right hand (principal)
CPT/HCPCS: 73130

== ENCOUNTER 2022-05-20 11:00 | Outpatient (RCR) | payer BC, SELFPAY ==
--- NOTE | 2022-05-21 08:45 | HOLTER_ITS ---
APPROVED REPORT Conclusion This is a 48-hour Holter monitor Predominant rhythm is sinus with an average heart rate of 77. Minimum was 56, maximum 128 There were rare atrial and ventricular ectopic beats Moderate artifact was noted There was no atrial fibrillation, no high-grade AV block, no pauses greater than 3 seconds, no suprav entricular tachycardia There were no apparent patient symptoms
== END 2022-06-19 23:59 | disposition home or self-care (01) ==
LOC: CARDOPNVT 11:00
PROVIDERS: PCP Nurse Practitioner; Visit Provider Nurse Practitioner
DX: R00.0 Tachycardia, unspecified (principal); I49.8 Other specified cardiac arrhythmias
CPT/HCPCS: 93225; 93226

== ENCOUNTER 2022-06-24 01:23 | Outpatient (CLI) | payer BC, SELFPAY ==
--- NOTE | 2022-06-24 06:15 | DI.US_ITS ---
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 Estimated ejection fraction is 60 to 65%. Wall motion is normal Normal right ventricular size and systolic function Both atria are normal in size There is no structural or hemodynamically significant valvular disease Normal estimated right ventricular systolic pressure 15 mmHg Wall motion Left Ventricle The left ventricle is normal size. The left ventricular systolic function is normal. The left ventric ular ejection fraction is within the normal range. There is normal left ventricular wall thickness. T here is normal LV segmental wall motion. There is no ventricular septal defect visualized. LVEF is 60 -65%. Right Ventricle The right ventricle is normal size. The right ventricular systolic function is normal. The RVSP is 14 .6 mmHg. Atria The left atrium size is normal. The right atrium size is normal. The interatrial septum is intact wit h no evidence for an atrial septal defect. Aortic Valve The aortic valve is normal in structure. Aortic valve is trileaflet. There is no aortic valvular sten osis. No aortic regurgitation is present. Mitral Valve The mitral valve is normal in structure. No evidence of mitral valve stenosis. Trace mitral regurgita tion. Tricuspid Valve The tricuspid valve is normal in structure. There is no tricuspid valve stenosis. Trace tricuspid reg urgitation. Pulmonic Valve The pulmonary valve is normal in structure. There is no pulmonic valvular stenosis. Trace pulmonic re gurgitation. Great Vessels The aortic root is normal in size. Ascending aorta is not well visualized Aortic arch is normal in ca liber. visualized. IVC is normal in size and collapses >50% with inspiration. Pericardium There is no pericardial effusion. 2D Dimensions IVSD d PLAX 0.86 cm F: 0.6-1.0 LV Vol A2C d MOD 75.2 mL LVPW d PLAX 0.81 cm F: 0.6 - 1.0 LV Vol A4C d MOD 73.4 mL LVID d PLAX 4.52 cm F: 3.8 - 5.2 LA vol/ BSA A2C s A-L 21.4 mL/m2 LVDs 2.85 cm F: 2.2 - 3.5 LA vol/ BSA A4C s A-L 24.0 mL/m2 Ao Root d 2.66 cm F: 2.7 - 3.3 LA Vol/ BSA Biplane s A-L 23.2 mL/m2 RA Area A4C 8.36 cm2 LA Area A4C s MOD 14.17 cm2 RA Vol/ BSA A4C s A-L 11.8 mL/m2 LA Area A2C s MOD 13.07 cm2 LV EF Teichholz 66.8 % LV EF A4C MOD 60.6 % LVEF (George's) 63.20 % F: 54 - 74 LV EF A2C MOD 65.9 % LV Volume 61.23 mL F: 46 - 106 LV EF Biplane MOD 63.2 % LV Volume Index 39.75 mL/m2 F: 29 - 61 SV 46.97 mL LV Vol Biplane MOD 74.3 mL SV Index 30.42 mL/m2 FS 36.80 % M-Mode TAPSE 2.90 cm (M/F) >1.7 LV Diastology MV E' medial 0.092 (>0.07 m/s) E/A Ratio 1.2 LV E/e MED 7.95 (<14) MV E Vmax 0.73 (0.4-1.3 m/s) MV E' lateral 0.149 (>0.1 m/s) MV A Vmax 0.60 (0.4-1.3 m/s) LV E/e LAT 4.90 (<14) MV E/A Ratio 1.17 MV E/E' medial 7.95 MV E/E' lateral 4.92 Aortic Valve LVOT Area 3.35 cm2 AoV Area Vmax 2.54 cm2 LVOT Vmax 0.96 m/s AoV Area/ BSA (Vmax) 1.64 cm2/m2 LVOT Mean Nam. 0.61 m/s MARY Mean Nam. 2.31 cm2 LVOT Peak Grad 3.7 mmHg MARY Mean Nam. Index 1.49 cm2/m2 LVOT Mean Grad 1.8 mmHg LVOT VTI 0.200 m LVOT Diam s 2.05 cm AoV Vmax 1.27 m/s Velocity Ratio 0.76 AoV Mean Nam. 0.89 m/s AoV Peak Grad 6.5 mmHg LVOT SV 66.99 mL AoV Mean Grad 3.6 mmHg AoV VTI 0.251 m AoV Area VTI 2.67 cm2 AoV Area/ BSA (VTI) 1.73 cm/m2 Mitral Valve MV DT 178 (160-240 msec) MV PHT 52 msec MV Area PHT 4.26 cm2 MV VTI 0.126 m MV Area VTI 5.33 (4.0-6.0 cm2) Pulmonary Valve PV Vmax 0.90 (0.5-1.5 m/s) RVOT Peak Gr. 2.57 mmHg PV Peak Grad 3.2 mmHg RVOT Mean Gr. 1.20 mmHg PV Mean Grad 1.7 mmHg RVOT VTI 0.153 m PV VTI 0.212 m RVOT Vmax 0.80 m/s Tricuspid Valve TR Peak Grad 11.6 mmHg TR Vmax 1.70 m/s RA Pressure 3.00 mmHg RVSP (TR) 14.6 mmHg
== END 2022-06-24 01:43 ==
LOC: DI 01:23
PROVIDERS: PCP Nurse Practitioner; Visit Provider Nurse Practitioner
DX: R00.0 Tachycardia, unspecified (principal); R07.89 Other chest pain
CPT/HCPCS: 93306

== ENCOUNTER → 2023-06-23 02:14 | Outpatient (CLI) | payer BC, SELFPAY ==
--- NOTE | 2023-06-23 06:30 | DI.US_ITS ---
Exam(s) US ABDOMEN EXAM: US ABDOMEN CLINICAL HISTORY: f/u polyp gallbladder,k92.4 TECHNIQUE: Ultrasound abdomen performed using standard protocol. COMPARISON: US US ABDOMEN from 01/15/2020 FINDINGS: ABDOMINAL AORTA AND IVC: Visualized portions normal caliber. PANCREAS: Normal where visualized. LIVER: Normal. Hepatopedal flow in the Portal Vein. The liver measures 15 cm long. GALLBLADDER:No evidence of cholelithiasis. No evidence of wall thickening. No pericholecystic fluid i dentified. The previously seen polyp is not visualized on the current examination. BILIARY SYSTEM: Common bile duct measures < 7 mm. No intrahepatic biliary ductal dilation. CANTU'S SIGN: Negative. KIDNEYS: Kidneys are symmetric in size. No evidence of renal calculi. No evidence of hydronephrosis. No renal mass or cyst identified. SPLEEN: Not enlarged. ASCITES: None seen. IMPRESSION: 1. Normal sonographic appearance of the upper abdomen. 2. The previously seen polyp in the gallbladder is not visualized on the current examination. DATA REPOSITORY:
--- NOTE | 2023-06-23 08:10 | DI.MAMMO_ITS ---
Exam(s) MAMMO SCREENING EXAM: MAMMO SCREENING CLINICAL HISTORY: screening,z12.39 TECHNIQUE: Bilateral full field digital CC and MLO mammographic images were obtained with 3D tomosyn thesis and utilizing computer aided detection (CAD). COMPARISON: Available for comparison. FINDINGS: Masses/Architectural Distortion: There is a question of a 6 mm nodule in the medial central left sugar st on the craniocaudad view approximately 4 cm from the nipple. No areas of architectural distortion are seen. Microcalcifications: No suspicious pleomorphic-type are seen. Skin Thickening/Nipple Retraction: None. IMPRESSION: 1. Question of a new 6 mm nodule in the medial central left breast. 2. Further evaluation with a spot compression views requested. Limited left breast ultrasound may be indicated at that time. BI-RADS Category 0 - Assessment Incomplete: Need additional imaging evaluation Breast Density - Category D - Extremely dense Breast density category C or D implies that the patient has dense breast tissue. Dense breast tissue is very common and is not abnormal but dense breast tissue can make it harder to find cancer on a ma mmogram. Also, dense breast tissue may increase their breast cancer risk. This information about the result of the mammogram report was provided to the patient to raise their awareness. Use this report when you speak with the patient about their risks for breast cancer, which includes their family hist ory. At that time, you may recommend for more screening tests (Ultrasound or MRI) as they might be us eful based on their risk. A negative radiographic report should not delay biopsy if a dominant or clinically suspicious mass is present. Up to ten percent of cancers are not identified on mammography. A negative report may reinforce clinical impression. Adenosis and dense breasts may obscure an underlying neoplasm. False positive reports average 6 to 10%. Patient will receive a letter notifying them of these results.
== END ==
PROVIDERS: PCP Nurse Practitioner; Visit Provider Nurse Practitioner
DX: K82.4 Cholesterolosis of gallbladder (principal); Z12.31 Encounter for screening mammogram for malignant neoplasm of breast; N63.41 Unspecified lump in right breast, subareolar
CPT/HCPCS: 77063; 77067; 76700

== ENCOUNTER → 2023-06-30 02:40 | Outpatient (CLI) | payer BC, SELFPAY ==
--- NOTE | 2023-06-30 | DI.US_ITS ---
Exam(s) MG MAMMO SCREEN CALL BACK UNI US BREAST LT COMPLETE EXAM: MG MAMMO SCREEN CALL BACK UNI-LEFT COMPLETE LEFT BREAST ULTRASOUND CLINICAL HISTORY: F/U MAMMO, R92.9,NEW LT BREAST NODULE. TECHNIQUE: Unilateral spot mammographic images obtained with 3D tomosynthesisand utilizing computer aided detection (CAD). . Complete LEFT breast Ultrasound was also performed, including all 4 quadrants, the retroareolar regio n, and the ipsilateral axilla. COMPARISON: Prior mammograms were reviewed. This additional imaging was performed due to findings described on the recent screening mammogram of 06/23/2023. FINDINGS: DIAGNOSTIC MAMMOGRAM: Additional mammographic views performed todaydoes not dissipate this nodule. We proceeded with ultra sound COMPLETE LEFT BREAST ULTRASOUND: Ultrasound performed today reveals a solitary finding which is at the 1 o'clock position corresponds to the finding on the mammogram. This is a 3-4 mm benign microcyst. There are no other focal findin gs in all 4 quadrants. No solid lesions. Scanning of the ipsilateral axilla reveals no significant adenopathy. IMPRESSION: 1. Benign finding. The nodule on the mammogram corresponds to a 3 millimeter benign microcyst on ul trasound Appropriate follow-up as discussed by myself with the patient today is to keep this patient on her [facility] mammogram schedule, with earlier imaging if a self detected breast change is noted.. The patient was informed of these findings and recommendations myself prior to leaving the department today. BI-RADS Category 2 - Benign Findings Breast Density - Category C - Heterogeneously dense Breast density Category C or D implies that the patient has dense breast tissue. Dense breast tissue can make it harder to find cancer on a mammogram. Dense breast tissue is also associated with an incr eased risk of breast cancer. This information about the result of the mammogram report was provided to the patient to raise their awareness. Use this report when you speak with the patient about their risks for breast cancer, which includes their family history. At that time, you may recommend additional screening tests (Ultrasoun d or MRI) as these tests may add significant information. A negative radiographic report should not delay biopsy if a dominant or clinically suspicious mass is present. Up to ten percent of cancers are not identified on mammography. A negative report may reinforce clinical impression. Adenosis and dense breasts may obscure an underlying neoplasm. False positive reports average 6 to 10%. Patient will receive a letter notifying them of these results.
== END ==
PROVIDERS: PCP Nurse Practitioner; Visit Provider Nurse Practitioner
DX: Z12.31 Encounter for screening mammogram for malignant neoplasm of breast (principal); R92.8 Other abnormal and inconclusive findings on diagnostic imaging of breast
CPT/HCPCS: 76642; 77063; 77067

== ENCOUNTER 2024-03-19 13:35 | Emergency (ER) | payer MEDICAID, SELFPAY ==
[2024-03-19 13:41] VITALS: BP 127/76; PULSE 60; RESP 16; TEMP 36.3; O2SAT 98
--- NOTE | 2024-03-19 14:15 | DI.RAD_ITS ---
Exam(s) XR FINGER RT LITTLE EXAM: XR FINGER RT LITTLE CLINICAL HISTORY: deformity. TECHNIQUE: 2D digital imaging was performed of the right finger. Three views were obtained. PA/AP, oblique, and lateral views were obtained. COMPARISON: CR XR HAND RT COMPLETE from 03/23/2022 FINDINGS: BONES: No acute fracture is present. No bony destructive lesion is seen. JOINTS: No dislocation present. SOFT TISSUE: Normal. IMPRESSION: No evidence of acute fracture or dislocation. DATA REPOSITORY: RADIATION DOSE DELIVERED:
--- NOTE | 2024-03-19 14:33 | ED.GENADUL_ITS ---
Discharge Plan Disposition Patient Disposition: Left Without Being Seen Condition: Stable Discharge Details Primary Care Provider: Merlyn Pena ED Provider: Provider,Joel HPI General Mode of arrival: ambulatory . Date/Time Provider Initiated Documentation: 03/19/24 13:48 . Limitations to Documentation: no limitations . Information obtained by: patient, RN notes reviewed and old records reviewed . Related Data Home Medications ?Medication ?Instructions ?Recorded ?Confirmed erenumab-aooe 70 mg/mL 140 mg subcut QMONTH 08/16/18 05/30/23 subcutaneous auto-injector (Aimovig Autoinjector 140 mg/2 Pack () almotriptan malate 12.5 mg tablet 12.5 mg PO ONCE PRN migraine 08/08/20 05/30/23 headache rimegepant 75 mg disintegrating 75 mg PO ONCE PRN 08/08/20 05/30/23 tablet (Nurtec ODT) magnesium oxide 400 mg PO BID 09/23/22 05/30/23 fluticasone propionate 50 2 spray intranasal DAILY #16 grams 05/30/23 05/30/23 mcg/actuation nasal spray,suspension glycopyrronium tosylate 2.4 % 1 applic topical DAILY excessive 05/30/23 05/30/23 towelette (Qbrexza) sweating groin #30 ea hydroxyzine HCl 25 mg tablet 25 mg PO BID PRN nausea #30 tabs 05/30/23 05/30/23 ondansetron 4 mg disintegrating 4 mg PO Q8H PRN #30 tab-caps 05/30/23 05/30/23 tablet Previous Rx's ?Medication ?Instructions ?Recorded fluticasone propionate 50 2 spray intranasal DAILY #16 grams 05/30/23 mcg/actuation nasal spray,suspension glycopyrronium tosylate 2.4 % 1 applic topical DAILY excessive 05/30/23 towelette (Qbrexza) sweating groin #30 ea hydroxyzine HCl 25 mg tablet 25 mg PO BID PRN nausea #30 tabs 05/30/23 ondansetron 4 mg disintegrating 4 mg PO Q8H PRN #30 tab-caps 05/30/23 tablet Allergies Allergy/AdvReac Type Severity Reaction Status Date / Time ketorolac (From Toradol) Allergy Severe Agitation-also Verified 05/30/23 10:08 see note doxycycline AdvReac Intermediate Nausea Verified 05/30/23 10:08 General Stated Complaint: Orthopedic TORY: 4 Course Vital Signs Vital signs: Vital Signs Temperature 36.3 C L 03/19/24 13:41 Pulse 60 03/19/24 13:41 Respiratory Rate 16 03/19/24 13:41 Blood Pressure 127/76 03/19/24 13:41 Pulse Oximetry 98 03/19/24 13:41 Temperature 36.3 C L 03/19/24 13:41 Temperature Source Tympanic 03/19/24 13:41 Pulse 60 03/19/24 13:41 Respiratory Rate 16 03/19/24 13:41 Blood Pressure 127/76 03/19/24 13:41 Blood Pressure Position Sitting 03/19/24 13:41 Pulse Oximetry 98 03/19/24 13:41 Oxygen Delivery Method Room Air 03/19/24 13:41 Oxygen Flow Rate 0 03/19/24 13:41 Pain Level 3 03/19/24 13:41 Medical Decision Making Negative x-ray result. Patient left without receiving x-ray results were prior to my examination. Left without being seen. Quality:SDOH Health Related Social Needs: No Data to Display PFSH All Active Problems (Updated 09/23/22 @ 17:25 by Genna Wilson LPN) Migraine (Acute 11/04/11) 09/22/22 Neurology Fibrocystic breast changes (Acute) Anxiety (Chronic) Proctocele (Acute) Gastritis (Acute 12/17/06) Fracture of left wrist (Acute) Joint pain (Acute) Rash (Acute) Fatigue (Acute) Small fiber neuropathy (Acute) Hair thinning (Acute) Hyperhidrosis (Acute) 06/19/19 [facility] [place] Derm (Dr Villa) Other acne (Acute) 06/19/19 [facility] [place] Derm - Acne Vulgaris Idiopathic small fiber peripheral neuropathy (Acute) 09/12/19 [facility] [place] Neurology Fibromyalgia (Acute) 09/12/19 [facility] [place] Neurology Fatigue (Acute) Urticaria, chronic (Acute) Muscle pain (Acute) Vaginal bleeding (Acute) Pelvic pain (Acute) Hypokalemia (Acute) Biceps tendonitis on right (Acute) Bacterial vaginal infection (Acute) Traumatic tear of right rotator cuff (Acute) Impingement syndrome of right shoulder (Acute) Bursitis of right shoulder (Acute) Distal radius fracture, right (Acute 05/30/21) Medical History (Updated 09/23/22 @ 17:25 by Genna Wilson LPN) Tobacco use disorder d/c 2000 Surgical History History of surgery on left wrist SALPINGECTOMY B/L (02/26/16) Hysterectomy, Laproscopic (02/26/16) Family History Mother Diabetes Essential hypertension Depression Hyperlipidemia Thyroid disease Father Alcohol abuse Essential hypertension Hyperlipidemia Sister Essential hypertension Hyperlipidemia Grandfather Myocardial infarction Grandfather Personal history of malignant neoplasm BLADDER/LUNG Grandmother Personal history of malignant neoplasm COLON Grandmother Diabetes Maternal Aunt Breast cancer Social History (Updated 05/30/23 @ 10:14 by Genna Wilson LPN) Smoking/Tobacco Use Status: Former Tobacco Use (quit 2000) Quit Date: 06/20/00 Tobacco: How many years used: 3 Smoking risk assessment performed?: Yes Alcohol Intake: current Alcohol Intake frequency: a few times a month Drug use: Never Substance use type: does not use Adopted: No Caregiver/Support person: No Foster care: No Household members: family Housing: house Number of Children: 2 number of grandchildren: 0 Communication Needs: None Education Level: vocational 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 Pets and animals: Yes (cats,dogs and geese) Pets and animals: cat(s), dog(s) and farm animals Sexually active: Yes ( control: vastectomy and hysterectomy) Current gender identity: female What is your relationship status?: How often do you talk on the phone with friends or family?: once per week How often do you get together with friends or relatives?: once per week Do you belong to any clubs or organized social groups?: no Panel score (0-1 are the most socially isolated patients): 1 What type of physical activity do you participate in: regular exercise Duration: < 15 minutes/day Frequency: daily Olga/Scientology: None Special olga needs: No Seatbelt use: always Helmet use: Yes Drive intox or ride w/intox dray driver: No Working smoke detector in home: Yes Fire extinguisher in home: Yes Carbon monox detector in home: Yes Do you feel safe at home: Yes Do you feel safe in your relationship?: Yes Female Reproductive History Menstrual Menopause type: surgical History History 2 Para 2 Hx # Term Pregnancies Multiple births Hx # Pregnancies Ectopic pregnancies AB induced Hx Number of Living Children AB spontaneous
== END 2024-03-19 14:40 | disposition left against medical advice (07) ==
PROVIDERS: PCP Nurse Practitioner
DX: Z53.21 Procedure and treatment not carried out due to patient leaving prior to being seen by health care provider (principal)
CPT/HCPCS: 73140

== ENCOUNTER 2024-05-30 01:37 | Outpatient (CLI) | payer MEDICAID, SELFPAY ==
--- NOTE | 2024-05-30 10:15 | DI.US_ITS ---
Exam(s) US BREAST LT COMPLETE EXAM: US BREAST LT COMPLETE CLINICAL HISTORY: lt breast lump 2 cm lat to nipple, n63.0,family h/o breast ca. TECHNIQUE: Complete ultrasound of the left breast was performed including all 4 quadrants, the retro areolar region, and the ipsilateral axilla. COMPARISON: FINDINGS: SEE COMBINED REPORT IMPRESSION: SEE COMBINED REPORT
--- NOTE | 2024-05-30 10:19 | DI.MAMMO_ITS ---
Exam(s) MAMMO DIAGNOSTIC BI EXAM: MAMMO DIAGNOSTIC BI AND COMPLETE LEFT BREAST ULTRASOUND CLINICAL HISTORY: breast lump lateral to left nipple,n63.20,family h/o breast ca,z80.3. TECHNIQUE: BILATERAL CC AND MLO mammographic images were obtained with 3D tomosynthesis technique an d utilizing computer aided detection (CAD). ALSO PERFORMED spot compression views of the left breast. COMPLETE LEFT BREAST ULTRASOUND performed including all 4 quadrants as well as the retroareolar regio n and left axilla. COMPARISON: Prior mammograms were reviewed, as was the prior ultrasound of June 2023. This 44-year-old patient claims that she feels a 3 o'clock para areolar region lump. Denies nipple d ischarge. Denies fever. FINDINGS: DIAGNOSTIC BILATERAL MAMMOGRAM: Fibroglandular tissue pattern is again noted be dense, this somewhat decreasing the sensitivity of th e mammogram for finding hidden underlying lesions. There are no spiculated masses nor malignant-appearing microcalcification groups in either breast. The previously described small nodule seen in the left breast on the mammogram 1 year ago is less lauren dent on the mammogram today. There is no new architectural distortion or skin thickening-retraction in either breast. COMPLETE LEFT BREAST ULTRASOUND: There is again noted a solitary finding which is unchanged from prior ultrasound examination June 2023 and corresponds to a palpable lump. This is a benign-appearing small 3 millimeter microcyst at the central 2 o'clock position. There are no additional focal findings in all 4 quadrants of the left breast. No dilated ducts evident. Scanning of the left axilla is negative for significant adenopathy. IMPRESSION: 1. Dense bilateral fibroglandular tissue. No radiographic evidence of malignancy. 2. Single benign 3 millimeter microcyst at the central 2 o'clock position which corresponds to her pa lpable finding at this location. No solid lesions evident. Appropriate follow-up is as discussed by myself with the patient today, is repeat ultrasound in 3 mon ths if she feels that this lump is increasing in size. The patient was informed of the findings and follow-up recommendations by myself prior to leaving the department today. BI-RADS Category 3 - 3 month - Probably Benign Finding: Recommend follow-up ultrasound in 3 months Breast Density - Category C - Heterogeneously dense Breast density Category C or D implies that the patient has dense breast tissue. Dense breast tissue can make it harder to find cancer on a mammogram. Dense breast tissue is also associated with an incr eased risk of breast cancer. This information about the result of the mammogram report was provided to the patient to raise their awareness. Use this report when you speak with the patient about their risks for breast cancer, which includes their family history. At that time, you may recommend additional screening tests (Ultrasoun d or MRI) as these tests may add significant information. A negative radiographic report should not delay biopsy if a dominant or clinically suspicious mass is present. Up to ten percent of cancers are not identified on mammography. A negative report may reinforce clinical impression. Adenosis and dense breasts may obscure an underlying neoplasm. False positive reports average 6 to 10%. Patient will receive a letter notifying them of these results.
== END 2024-05-30 01:57 ==
LOC: DI 01:37
PROVIDERS: PCP Nurse Practitioner; Visit Provider Nurse Practitioner
DX: R92.8 Other abnormal and inconclusive findings on diagnostic imaging of breast (principal); Z12.31 Encounter for screening mammogram for malignant neoplasm of breast; Z80.3 Family history of malignant neoplasm of breast
CPT/HCPCS: 76642; 77062; 77066; G0279

== ENCOUNTER 2024-07-18 11:47 | Outpatient (REF) | payer MEDICAID, SELFPAY ==
--- NOTE | 2024-07-18 10:30 | PAPFT_PTH ---
PATIENT: Naty Raymond LOC: [facility] U#:[id number] AGE/SX: 44/F ROOM: RE07/18/[address]: Merlyn Pena APRN : 1980 BED: DIS: 07/18/2024 SPEC #: [id number] RECD: 07/18/24 17:58 STATUS: VENICE RESue #: [id number] REENA: 07/18/24 10:[address]: Merlyn Pena DEPT: [facility] Cytology RECD BY: Sara Freire Tissues: 1 - CX/ENDOCX FOR PAP SMEARS Procedures: PAP THIN PREP/UVM Screening HPV DNA PROBE Comments: [id number] (HPV 16 & 18/45)
== END 2024-07-18 11:48 | disposition home or self-care (01) ==
LOC: LBN 11:47
PROVIDERS: PCP Nurse Practitioner; Visit Provider Nurse Practitioner
DX: Z12.4 Encounter for screening for malignant neoplasm of cervix (principal)
CPT/HCPCS: 88142; 87624

== ENCOUNTER 2024-08-30 01:16 | Outpatient (CLI) | payer MEDICAID, SELFPAY ==
--- NOTE | 2024-08-30 07:15 | DI.US_ITS ---
Exam(s) US BREAST LT COMPLETE EXAM: US BREAST LT COMPLETE CLINICAL HISTORY: 3 mo f/u,fibrocystic breast changes,n60.19,microcyst TECHNIQUE: Ultrasound left breast performed using standard protocol. All 4 quadrants of the left br east were evaluated sonographically including the left retroareolar region and the left axilla. COMPARISON: Comparison is made with prior mammograms and left breast ultrasound. FINDINGS: There is again seen a simple cyst at the 2 o'clock position of the left breast 1 cm from the nipple. It measures 3 x 3 x 4 mm. It is unchanged compared to the prior examination. No other cystic or so lid masses are seen sonographically in the left breast, axilla or retroareolar region. IMPRESSION: 1. No sonographically suspicious finding. 2. Stable simple left breast cyst. 3. Unless there is more urgent need, screening mammography is recommended, as per [employer] guidelines. 4. Findings were discussed with the patient on the date of the examination. BI-RADS Category 2 - Benign Findings DATA REPOSITORY:
== END 2024-08-30 01:36 ==
LOC: DI 01:17
PROVIDERS: PCP Nurse Practitioner; Visit Provider Nurse Practitioner
DX: N60.12 Diffuse cystic mastopathy of left breast (principal)
CPT/HCPCS: 76642